=== PATIENT | female | born 1970 | race Caucasian/White ===

== ENCOUNTER 2025-01-07 22:13 | Emergency (ER) | payer OTHER, SELFPAY ==
[2025-01-07 22:14] VITALS: BP 160/93; PULSE 88; RESP 22; TEMP 37.2; O2SAT 95; BMI 46.8
--- NOTE | 2025-01-07 22:39 | CT_ITS ---
PROCEDURE: ABDOMEN/PELVIS W IV CONT ONLY 01/07/2025 REASON FOR EXAM: RLQ PAIN TECHNIQUE: Abdomen and pelvis CT with intravenous contrast. Coronal and Sagittal reconstruction series were provided. PATIENT PREPARATION: Per protocol ORAL CONTRAST TYPE: None. AMOUNT: mL CONTRAST: Omnipaque 350 VOLUME: 100 mL Not Provided Gauge IV One or more dose reduction techniques were used (e.g., Automated exposure control, adjustment of the mA and/or kV according to patient size, use of iterative reconstruction technique. COMPARISON: None FINDINGS: Lung bases: Unremarkable Liver: Hepatomegaly, craniocaudal length 22 cm. Hepatic steatosis. 20 mm low- attenuation lesion left hepatic lobe. 12 mm inferior right hepatic lobe hypervascular lesion. Additional 12 mm inferior right hepatic lobe low-attenuation lesion. Gallbladder: No ductal dilation. Gallbladder is unremarkable. Spleen: No splenomegaly. Pancreas: Normal size without evidence of mass surrounding inflammation or ductal dilation. Adrenals: Unremarkable Kidneys: Normal renal sizes. No hydronephrosis. Bladder: Urinary bladder is unremarkable Reproductive Organs: 4.1 cm left adnexal cyst. Bowel: Status post gastric sleeve resection. No bowel dilation. Colonic diverticulosis with wall thickening and surrounding soft tissue stranding involving the descending and proximal sigmoid colon, compatible with acute diverticulitis. No pneumoperitoneum or drainable fluid collection. Appendix is normal.. Lymph nodes: No suspicious adenopathy. Vasculature: The abdominal aorta and IVC are normal. Peritoneum / Retroperitoneum: No ascites or pneumoperitoneum. Bones: No suspicious osseous lesions. Soft tissues: Small fat containing umbilical hernia. CT/Abdomen/Pelvis W IV Cont ONLY IMPRESSION: 1. Findings compatible with acute sigmoid diverticulitis. No pneumoperitoneum or drainable fluid collection. 2. Hepatomegaly and steatosis with multiple low-attenuation and right inferior lobe hypervascular lesion. These may represent hemangiomas. Recommend further evaluation with MRI of the liver with and witho ut contrast. 4.1 cm left adnexal cysts. Recommend further evaluation with nonemergent pelvic ultrasound. Reading [facility]
[2025-01-07 22:52] LABS: Absolute Neutrophil Count 6.6 X10^3/uL (2.0-7.7); Basophil# 0.03 X10^3/uL; Basophil% 0.3 % (0-1); Eosinophil# 0.16 X10^3/uL; Eosinophils% 1.6 % (0-5); Hematocrit 37.1 % (37-47); Hemoglobin 12.3 g/dL (12.0-15.0); Lymphocyte % 21.6 % (19-41); Mean Corp Hgb Conc 33.2 g/dL (32-36); Mean Corpuscular Hgb 27.5 pg (27.0-32.0); Mean Corpuscular Volume 82.8 fL (81-99); Monocyte# 1.12 X10^3/uL; NRBC Flagged by Analyzer 0 % (0-5); Neutrophil # 6.64 X10^3/uL (2.7-7.7); Neutrophil % 65.2 % (47-70); Platelet Count 311 K/mm3 (150-450); RBC Distribution Width CV 14.6 % (11.6-14.6); RBC Distribution Width SD 43.8 fl (35.1-43.9); Red Blood Count 4.48 M/mm3 (4.2-5.4); White Blood Count 10.2 K/mm3 (4.4-11.0)
[2025-01-07] MEDS: Ketorolac 30 MG/ML Syringe IV (22:52)
[2025-01-07] MEDS: 0.9% Normal Saline (1000mL) 1,000 ML 999 ML IV (22:52)
[2025-01-07] MEDS: Ondansetron 4 MG/2 ML Vial IV (22:53)
[2025-01-07 23:24] LABS: AST(SGOT) 21 U/L (<=31); Alanine Aminotransfer ALT/SGPT 19 U/L (<=34); Albumin, Serum 3.8 g/dL (3.5-5.0); Alkaline Phosphatase 65 U/L (35-104); Anion Gap 11 (5-15); BUN 15 mg/dL (4-19); BUN/Creat Ratio 17.6 RATIO (10-20); Bilirubin, Direct 0.11 mg/dL (0.00-0.30); Calcium,Total 8.9 mg/dL (7.6-11.0); Carbon Dioxide 22.1 mmol/L (21.0-32.0); Chloride 103 mmol/L (98-108); Creatinine, Serum 0.83 mg/dL (0.70-1.20); EST Glomerular Filtration Rate 85 (>60); Estimated Creatinine Clearance 129.52 ml/min (50-250); Globulin 3.4 g/dL (2.2-4.2); Glucose 100 mg/dL (70-99); Lipase 18 U/L (13-75); Protein, Total 7.2 g/dL (5.9-8.4); Sodium Level 137 mmol/L (133-145)
[2025-01-07 23:43] LABS: Color, Urine Yellow (Yellow); Glucose, Dipstick Normal (Normal); Ketone-Dipstick Negative (Negative); Leukocyte Esterase-Dipstick 500 /ul (Negative); Nitrite-Dipstick Negative (Negative); Occult Blood-Urine 25 /ul (Negative); Protein-Dipstick 15 mg/dl (Negative); Specific Gravity, Urine 1.015 (1.002-1.030); Urine Bilirubin Dipstick Negative (Negative); Urine Clarity Clear (Clear); Urine Urobilinogen Normal (Normal)
[2025-01-08 00:08] VITALS: PULSE 65; RESP 15; TEMP 36.4; O2SAT 98
--- NOTE | 2025-01-08 00:11 | EX.ED.DYSGE1 ---
HPI History of Present Illness Chief Complaint: Abd Pain Informant: patient Narrative Narrative: Patient is a 54-year-old female who reports no significant past medical history. She states that over the last 2 days she has had midepigastric abdominal pain that has been waxing and waning in nature. She states that she has been nauseous with this but denies any vomiting. She denies any diarrhea or constipation. She states has been no dysuria. She reports that today the pain increased in severity and she also felt sick with subjective fevers and chills. She denies any known sick contacts but has concern for developing infection and therefore comes in for evaluation [facility] Medical History (Updated 01/08/25 @ 02:[address] James Talbert, DO) Hiatal hernia Home Medications ?Medication ?Instructions ?Recorded ?Last Taken ?Type atorvastatin 20 mg tablet 20 mg PO DAILY 12/06/22 Unknown History phenazopyridine 100 mg tablet 100 mg PO TID PRN pain 6 doses #6 12/06/22 Unknown Rx (Pyridium) tabs sertraline 50 mg tablet 50 mg PO DAILY 12/06/22 Unknown History azithromycin 250 mg tablet See Rx Instructions PO .COMPLEX #6 12/06/23 Unknown Rx (Zithromax Z-Hamzah) tabs dextromethorphan-guaifenesin 10 10 ml PO Q4H PRN cough #500 mL 12/06/23 Unknown Rx mg-100 mg/5 mL oral liquid fluconazole 150 mg tablet 150 mg PO Q3D 2 doses #2 tabs 12/06/23 Unknown Rx methylprednisolone 4 mg tablets in See Rx Instructions PO PER PKG DIR 12/06/23 Unknown Rx a dose pack #21 tabs amoxicillin 875 mg-potassium 1 tab PO BID 10 days #20 tabs 01/08/25 Unknown Rx clavulanate 125 mg tablet ondansetron 4 mg disintegrating 4 mg PO TID PRN nausea and 01/08/25 Unknown Rx tablet vomiting #21 tabs Allergy/AdvReac Type Severity Reaction Status Date / Time No Known Allergies Allergy Verified 01/07/25 22:14 Family History (Updated 12/06/22 @ 06:44 by Katey Hussein) Father Heart disease Mother Heart disease Surgical History H/O gastric bypass Hx of hysterectomy, total Social History (Updated 12/06/22 @ 06:44 by Katey Hussein) Smoking Status: Never smoker alcohol intake: never ROS ROS ED Constitutional Constitutional ED: Reports chills, fever(s) and subjective ENT ENT ED: Denies sore throat Cardiovascular Cardiovascular: Denies chest pain Respiratory/Chest Respiratory/Chest: Denies cough or dyspnea Gastrointestinal Gastrointestinal: Reports abdominal pain and nausea; Denies constipation, diarrhea, melena or vomiting Genitourinary Genitourinary ED: Denies dysuria or hematuria Musculoskeletal Musculoskeletal: Reports myalgias Integumentary Denies rash Neurologic Neurologic: Denies headache(s) Hematologic/Lymphatic Hematologic/Lymphatic: Denies easy bleeding or easy bruising EXAM Physical Exam Const Vital Signs: 01/07/25 22:14 01/08/25 00:08 Temperature 98.9 F 97.5 F L Temperature Source Oral Pulse Rate 88 65 Respiratory Rate 22 H 15 Blood Pressure 160/93 H Blood Pressure Mean 115 Pulse Ox 95 98 Oxygen Delivery Method Room Air Positive well nourished, well developed and obese General Appearance ED: well developed; Negative for pallor Nutritional Appearance: obese HEENT HEENT Narrative: No tongue or lip swelling no oral lesions no airway edema or compromise No signs of infection noted in the posterior pharynx Eyes PERRL and EOMs intact bilaterally General Eye ED: Negative for scleral icterus Neck supple Resp normal respiratory effort and clear to auscultation bilaterally Cardio regular rate and regular rhythm Rate: other Other Details: Heart is regular rate and rhythm without murmurs rubs or gallops Radial and carotid pulses are equal and symmetric GI non-distended and no masses GI Narrative: Abdomen is soft and nondistended with normal active bowel sounds. There is pain on palpation in the midepigastric and right lower quadrant. However negative heel strike psoas and obturator sign. No pulsatile mass or fluid wave Auscultation: normoactive bowel sounds Palpation: soft Back/Spine no CVA tenderness Extremity normal to inspection Neuro oriented x3, CN's II-XII intact bilaterally and no sensory deficits noted Sensorium / Orientation: alert Motor Exam: strength 5/5 throughout Psych mental status grossly normal Skin no rashes or lesions noted and no wounds General Skin Exam: Negative for jaundice or pallor MDM MDM MDM Narrative Medical decision making narrative: Patient arrived to the ER hypertensive otherwise with stable vitals. With worsening abdominal pain and pain that is reproducible in the right lower quadrant there is concern for acute appendicitis versus biliary colic/acute cholecystitis versus pancreatitis. Patient also could have potentially have a viral infection such as norovirus versus rotavirus or atypical presentation for UTI. Secondary to his basic labs were obtained with a CT scan with IV contrast. Labs revealed no clinically significant findings. Patient's urine did show +3 bacteria but there is contamination with 25-50 epithelial cells and as the patient has no urinary symptoms I do not feel there is need for urine culture and I do not believe this is truly an infection. Her CT scan however did show changes consistent with acute diverticulitis. This could be the cause of her recurrent abdominal pain. There is no abscess or perforation or obstruction and therefore this is an uncomplicated diverticular infection. Therefore patient can be placed on antibiotics and is otherwise safe for discharge History & Record Review Discussion w/independent historian: Patient Lab Data Attestation: I reviewed the patient's lab results. Labs: Laboratory Results - last 24 hr 01/07/25 01/07/25 22:43 23:30 WBC 10.2 RBC 4.48 Hgb 12.3 Hct 37.1 MCV 82.8 MCH 27.5 MCHC 33.2 RDW Std Deviation 43.8 RDW Coeff of Jose 14.6 Plt Count 311 MPV 10.0 Immature Gran % (Auto) 0.300 Neut % (Auto) 65.2 Lymph % (Auto) 21.6 [place] % (Auto) 11.0 H Eos % (Auto) 1.6 Baso % (Auto) 0.3 Absolute Neuts (auto) 6.6 Absolute Lymphs (auto) 2.20 Nucleated RBC % 0 Sodium 137 Potassium 4.0 Chloride 103 Carbon Dioxide 22.1 Anion Gap 11 BUN 15 Creatinine 0.83 Estim Creat Clear Calc 129.52 Est GFR (MDRD) Non-Af 85 BUN/Creatinine Ratio 17.6 Glucose 100 H Calcium 8.9 Total Bilirubin 0.30 Direct Bilirubin 0.11 AST 21 ALT 19 Alkaline Phosphatase 65 Total Protein 7.2 Albumin 3.8 Globulin 3.4 Lipase 18 Urine Color Yellow Urine Clarity Clear Urine pH 7.0 Ur Specific [place] 1.015 Urine Protein 15 H Urine Glucose (UA) Normal Urine Ketones Negative Urine Occult Blood 25 H Urine Nitrite Negative Urine Bilirubin Negative Urine Urobilinogen Normal Ur Leukocyte Esterase 500 H Urine RBC 0-5 SEEN Urine WBC >100 SEEN Ur Squamous Epith Cells 25-50 SEEN Urine Bacteria 3+ Urine Mucus 1+ Radiography Diagnostic Testing: Clinical Impression(s) from Imaging Studies Abdomen/Pelvis CT 01/07/25 22:39 IMPRESSION: 1. Findings compatible with acute sigmoid diverticulitis. No pneumoperitoneum or drainable fluid collection. 2. Hepatomegaly and steatosis with multiple low-attenuation and right inferior lobe hypervascular lesion. These may represent hemangiomas. Recommend further evaluation with MRI of the liver with and without contrast. 4.1 cm left adnexal cysts. Recommend further evaluation with nonemergent pelvic ultrasound. Reading Location: [facility] Discharge Plan Triage Chief Complaint: Abd Pain ED Provider: James Talbert Dx/Rx/DC Orders Clinical Impression: Diverticulitis of sigmoid colon, Obesities, morbid, Hypertension Instructions: ED Diverticulitis Prescriptions: New ondansetron 4 mg tablet,disintegrating 4 mg PO TID PRN (Reason: nausea and vomiting) Qty: 21 0RF amoxicillin-pot clavulanate 875-125 mg tablet 1 tab PO BID 10 Days Qty: 20 0RF No Action sertraline 50 mg tablet 50 mg PO DAILY atorvastatin 20 mg tablet 20 mg PO DAILY phenazopyridine [Pyridium] 100 mg tablet 100 mg PO TID PRN (Reason: pain) Qty: 6 0RF azithromycin [Zithromax Z-Hamzah] 250 mg tablet See Rx Instructions PO .COMPLEX Qty: 6 0RF Rx Instructions: take 500 mg today (day 1), then 250 mg for 4 days (days 2-5) PO methylprednisolone 4 mg tablets,dose pack See Rx Instructions PO PER PKG DIR Qty: 21 0RF Rx Instructions: PO PER PKG DIR dextromethorphan-guaifenesin 10-100 mg/5 mL liquid 10 ml PO Q4H PRN (Reason: cough) Qty: 500 0RF fluconazole 150 mg tablet 150 mg PO Q3D Qty: 2 0RF Rx Instructions: may repeat once after 3 days if any ongoing symptoms. Primary Care Provider: Radha Blackman NP Referrals: Radha Blackman NP, [employer] [facility] [Primary Care Provider] - Activity Restrictions/Additional Instructions: Your CT scan showed no signs of appendicitis but did show inflammation of your sigmoid colon consistent with diverticulitis. Take the antibiotic as directed to help resolve the infection which will resolve your pain. This will typically take 2 to 3 days for improvement. Continue with Tylenol and/or Motrin for pain control and use the Zofran as needed for relief of nausea and vomiting. If you develop a fever or have increasing pain or any further concerns please return for repeat evaluation. Print Language: Malay Disposition Disposition: Home, Self Care Discharge Date/Time: 01/08/25 00:20
[2025-01-08] MEDS: Amox/Clavulanate 875 MG Tablet PO (00:19)
[2025-01-08 00:22] LABS: Red Blood Cells-Urine 0-5 SEEN /hpf (0-5); Squamous Epithelial Cells - UA 25-50 SEEN /hpf (5-10); White Blood Cells >100 SEEN /hpf (0-5)
[2025-01-08 00:23] LABS: Bacteria 3+ /hpf (None Seen); Mucous, Urine 1+ /hpf (<or=2+)
== END 2025-01-08 00:20 | disposition home or self-care (01) ==
PROVIDERS: Emergency Provider Emergency Medicine; PCP Nurse Practitioner Family; Visit Provider Emergency Medicine
DX: R10.13 Epigastric pain (principal); E66.01 Morbid (severe) obesity due to excess calories; K57.32 Diverticulitis of large intestine without perforation or abscess without bleeding; I10 Essential (primary) hypertension; Z90.710 Acquired absence of both cervix and uterus
CPT/HCPCS: 74177; 80048; 80076; 81001; 83690; 85025; 96361; 96374; 96375; 99283; Q9967; A4216; J2405

== ENCOUNTER → 2025-03-02 | Outpatient (CLI) | payer OTHER, SELFPAY | END | disposition home or self-care (01) | LOC: PSN 06:43 | PROVIDERS: PCP Nurse Practitioner Family; Referring Provider Nurse Practitioner Family; Visit Provider Nurse Practitioner Family | DX: R00.2 Palpitations (principal); R06.02 Shortness of breath; Z82.49 Family history of ischemic heart disease and other diseases of the circulatory system | CPT/HCPCS: 93225; 93226 ==

== ENCOUNTER → 2025-03-31 | Outpatient (CLI) | payer SELFPAY, OTHER ==
--- NOTE | 2025-03-31 06:06 | ECHOD_ITS ---
Reason For Study Reason For Study: PALPITATIONS Procedure This was a 2D Doppler, Color Flow transthoracic echocardiogram. Exam performed in department. Left Ventricle Normal LV size. The left ventricular ejection fraction is 55 %. No regional wall motion abnormalities noted. Right Ventricle Normal RV size. Normal systolic function. Atria Normal left atrium. Normal right atrium. Mitral Valve Normal mitral valve. Tricuspid Valve Normal tricuspid valve. Aortic Valve Trisinus/trileaflet aortic valve. Pulmonic Valve Normal pulmonic valve. Great Vessels Normal aortic root. The pulmonary artery is normal size. Pericardium/Pleural No pericardial effusion. MMode/2D Measurements & Calculations LVIDd: 4.6 cm IVSd: 0.99 cm LVOT diam: 2.2 cm LVIDs: 2.8 cm LVPWd: 1.0 cm LVOT area: 3.9 cm2 RVDd: 3.3 cm FS: 40.0 % asc Aorta Diam: 3.5 cm LAV(MOD-bp): 43.9 ml LVAd ap4: 25.4 cm2 LAV(MOD-bp) Indexed: 17.1 ml/m2 LVLd ap4: 8.1 cm LAV(MOD-sp2): 63.5 ml EDV(MOD-sp4): 67.9 ml LAV(MOD-sp4): 26.3 ml EDV(sp4-el): 67.8 ml LVAs ap4: 12.9 cm2 LVLs ap4: 6.5 cm ESV(MOD-sp4): 21.7 ml ESV(sp4-el): 21.7 ml EF(MOD-sp4): 68.1 % EF(sp4-el): 68.0 % LVAd ap2: 25.4 cm2 SV(MOD-sp4): 46.2 ml SV(MOD-sp2): 44.7 ml LVLd ap2: 8.0 cm SI(MOD-sp4): 17.9 ml/m2 SI(MOD-sp2): 17.4 ml/m2 EDV(MOD-sp2): 65.8 ml EDV(sp2-el): 68.7 ml LVAs ap2: 13.1 cm2 LVLs ap2: 6.7 cm ESV(MOD-sp2): 21.1 ml ESV(sp2-el): 21.6 ml EF(MOD-sp2): 68.0 % SV(sp4-el): 46.1 ml Ao sinus diam: 3.[address] Junction: 3.0 cm LA dimension(2D): 3.9 cm LA A4 area: 12.6 cm2 RA A4 area: 5.8 cm2 TAPSE: 2.3 cm Time Measurements MV dec time: 0.17 sec Doppler Measurements & Calculations MV E max omari: 69.7 cm/sec Lat Peak E' Omari: 10.7 cm/sec Med Peak E' Omari: 11.2 cm/sec MV A max omari: 71.3 cm/sec E/E' lat: 6.5 E/E' med: 6.2 MV E/A: 0.98 MV dec slope: 401.1 cm/sec2 Ao V2 max: 119.5 cm/sec LV V1 max: 108.4 cm/sec Ao max P.7 mmHg LV V1 max P.7 mmHg Ao V2 mean: 86.7 cm/sec LV V1 mean P.4 mmHg Ao mean P.3 mmHg LV V1 mean: 90.7 cm/sec Ao V2 VTI: 25.7 cm LV V1 VTI: 26.1 cm AV (velocity ratio): 1.0 MARY(I,D): 4.0 cm2 MARY(V,D): 3.6 cm2 SV(LVOT): 102.4 ml PA V2 max: 89.1 cm/sec ECHO/Echo Complete Interpretation Summary The left ventricular ejection fraction is 55 %. Normal LV size. No regional wall motion abnormalities noted. Structurally normal valves. Ordering Physician: Radha Blackman Referring Physician: Radha Blackman Performed By: Concepcion Abreu RDCS
--- OUTSIDE RECORDS SUMMARY | 2025-03-31 06:09 | XMS RPT_ITS | CCD ---
Author Organization [facility] Care Team Providers Care Se[employer] Name Role Phone Dr. James Talbert DO Emergency Provider [phone] Yehuda DIRECTOR DATA ARCHITECTURE-C, Radha Shelly Primary Care Provider Dr. James Talbert DO Attending Provider [phone] Kappbettye DIRECTOR DATA ARCHITECTURE-C, Radha Shelly Attending Provider [phone] Kappbettye DIRECTOR DATA ARCHITECTURE-C, Radha Shelly Referring Provider Kappbettye DIRECTOR DATA ARCHITECTURE, Radharamandeep Alexandere Attending Unavailabl e Kapper DIRECTOR DATA ARCHITECTURE, Radha Shelly Referring Unavailabl e Kapper DIRECTOR DATA ARCHITECTURE, Radha Shelly Primary Care Unavailabl e James Talbert Attending Unavailable Kapper DIRECTOR DATA ARCHITECTURE, Radha Shelly Primary Care Unavailabl e Kapper DIRECTOR DATA ARCHITECTURE, Radha Shelly Referring Unavailabl e Kapper DIRECTOR DATA ARCHITECTURE, Radha Shelly Primary Care Unavailabl e Kapper DIRECTOR DATA ARCHITECTURE, Radha Shelly Attending Unavailabl e Kapper DIRECTOR DATA ARCHITECTURE, Radha Shelly Referring Unavailabl e Kapper DIRECTOR DATA ARCHITECTURE, Radha Shelly Primary Care Unavailabl e Kendall Barber Attending Unavailabl e Medications Current Medications Medication Drug Class(es) Dates Sig (Normalized) Sig (Original) amoxicillin 875 mg / clavulanate 125 mg oral tablet (2 sources) Penicillin-class Antibacterial Start: 5 Amoxicillin-Pot Clavulanate 875-125 mg tablet Active 1 {tbl} PO TWICE A DAY 20 07January 08, 2025 12:00am atorvastatin 20 mg oral tablet (2 sources) HMG-CoA Reductase Inhibitor Start: 3 take 1 tablet by mouth once daily Atorvastatin 20 mg tablet Active 20 mg PO DAILY December 06, 2022 1:00am azithromycin 250 mg oral tablet (2 sources) Macrolide Antimicrobial Start: 4 take 2-5 tablets by mouth once daily Azithromycin (Zithromax Z-Hamzah) 250 mg tablet Active 0 PO .COMPLEX December 06, 2023 1:00am take 500 mg today (day 1), then 250 mg for 4 days (days 2-5) PO dextromethorphan hydrobromide 2 mg/ml / guaiFENesin 20 mg/ml oral solution (2 sources) Uncompetitive Q-njukwm-K-asparta te Receptor Antagonist, Sigma-1 Agonist Start: 4 take 1 mL by mouth every four hours as needed for cough Dextromethorphan-Guai fenesin 10-100 mg/5 mL liquid Active 10 mL PO Q4H as needed for cough 500 December 06, 2023 1:00am fluconazole 150 mg oral tablet (2 sources) Azole Antifungal Start: 4 Fluconazole 150 mg tablet Active 150 mg PO Every 3 Days 2 December 06, 2023 1:00am may repeat once after 3 days if any ongoing symptoms. methylPREDNISolone 4 mg oral tablet (2 sources) Corticosteroid Start: 4 Methylprednisolone 4 mg tablets,dose pack Active 0 PO per package directions December 06, 2023 1:00am PO PER PKG DIR ondansetron 4 mg disintegrating oral tablet (2 sources) Serotonin-3 Receptor Antagonist Start: 5 take 1 tablet by mouth three times daily as needed for nausea and vomiting Ondansetron 4 mg tablet,disintegrating Active 4 mg PO THREE TIMES A DAY as needed for nausea and vomiting January 08, 2025 12:12am phenazopyridine hydrochloride 100 mg oral tablet (2 sources) Start: 3 take 1 tablet by mouth three times daily as needed for pain Phenazopyridine (Pyridium) 100 mg tablet Active 100 mg PO THREE TIMES A DAY as needed for pain December 06, 2022 1:00am sertraline 50 mg oral tablet (2 sources) Serotonin Reuptake Inhibitor Start: 3 take 1 tablet by mouth once daily Sertraline 50 mg tablet Active 50 mg PO DAILY December 06, 2022 1:00am Completed/Discontinued Medications Medication Drug Class(es) Dates Sig (Normalized) Sig (Original) nitrofurantoin, macrocrystals 25 mg / nitrofurantoin, monohydrate 75 mg oral capsule (2 sources) Nitrofuran Antibacterial Start: 12-06-2022 End: 12-13-2022 take 1 capsule by mouth every twelve hours at mealtime Nitrofurantoin Monohyd/M-Cryst (Macrobid) 100 mg capsule Discontinued 100 mg PO Q12H 14 7 December 06, 2022 1:00am December 12, 2022 12:00am December 13, 2022 12:04am must administer with a meal/food Problems Problem Classification Problem Date Documented Date Episodic/Chronic Abdominal pain (1 source) Epigastric pain; Translations: [Epigastric pain] Onset: 03-30-2025 Episodic Acute bronchitis (2 sources) Acute bronchitis; Translations: [Acute bronchitis, unspecified] 12-06-2023 Episodic Cardiac dysrhythmias (2 sources) Palpitations; Translations: [Palpitations] Onset: 03-30-2025 Episodic Disorders of lipid metabolism (2 sources) Dyslipidemia; Translations: [Hyperlipidemia, unspecified] 07-12-2015 Chronic Diverticulosis and diverticulitis (2 sources) Diverticulitis of sigmoid colon; Translations: [Diverticulitis of large intestine without perforation or abscess without bleeding] 01-08-2025 Chronic Essential hypertension (1 source) Hypertensive disorder; Translations: [Essential (primary) hypertension] 01-16-2025 Chronic Fever of unknown origin (2 sources) Fever; Translations: [Fever, unspecified] 12-06-2022 Episodic Genitourinary symptoms and ill-defined conditions (4 sources) Blood in urine; Translations: [Hematuria, unspecified] 12-06-2022 Episodic Headache; including migraine (2 sources) Headache; Translations: [Severe headache] 12-06-2022 Episodic Malaise and fatigue (1 source) Other fatigue; Translations: [Other fatigue] Onset: 03-30-2025 Episodic Nausea and vomiting (2 sources) Nausea; Translations: [Nausea] 12-06-2022 Episodic Nonspecific chest pain (2 sources) Chest pain; Translations: [Chest pain, unspecified] 07-12-2015 Episodic Other lower respiratory disease (1 source) Shortness of breath; Translations: [Shortness of breath] Onset: 03-30-2025 Episodic Other nutritional; endocrine; and metabolic disorders (2 sources) Morbid obesity; Translations: [Morbid (severe) obesity due to excess calories] 07-12-2015 Chronic Residual codes; unclassified (1 source) Family history of ischemic heart disease and other diseases of the circulatory system; Translations: [Family history of ischemic heart disease and other diseases of the circulatory system] Onset: 03-30-2025 Episodic Spondylosis; intervertebral disc disorders; other back problems (2 sources) Low back pain; Translations: [Low back pain] 12-06-2022 Episodic Urinary tract infections (2 sources) Acute urinary tract infection; Translations: [Urinary tract infection, site not specified] 12-06-2022 Episodic Results Test Name Value Interpretation Reference Range Facility Emergency Department Summary on 01-08-2025 Emergency Department Summary [facility] Medical Records Department [address] [place] [address] Emergency Department Summary 01/08/25 MR#: [id number] Acct: [id number] Name: ARAVIND VERGARA Rep #: [id number] : 1970 54 From: James Talbert DO PCP: RON JarquinC Status:DEP ER Location: ED HPI History of Present Illness Chief Complaint: Abd Pain Informant: patient Narrative Narrative: Patient is a 54-year-old female who reports no significant past medical history. She states that over the last 2 days she has had midepigastric abdominal pain that has been waxing and waning in nature. She states that she has been nauseous with this but denies any vomiting. She denies any diarrhea or constipation. She states has been no dysuria. She reports that today the pain increased in severity and she also felt sick with subjective fevers and chills. She denies any known sick contacts but has concern for developing infection and therefore comes in for evaluation [facility] Medical History (Updated 01/08/25 @ 02:[address] James Talbert, DO) Hiatal hernia Home Medications ???Medication ???Instructions ???Recorded ???Last Taken ???Type atorvastatin 20 mg tablet 20 mg PO DAILY 12/06/22 Unknown Hi story phenazopyridine 100 mg tablet 100 mg PO TID PRN pain 6 doses #6 12/06/22 Unknown Rx (Pyridium) tabs sertraline 50 mg tablet 50 mg PO DAILY 12/06/22 Unknown Hi story azithromycin 250 mg tablet See Rx Instructions PO .COMPLEX #6 12/06/23 Unknown Rx (Zithromax Z-Hamzah) tabs dextromethorphan-gua ifenesin 10 10 ml PO Q4H PRN cough #500 mL 04/23 Unknown Rx mg-100 mg/5 mL oral liquid fluconazole 150 mg tablet 150 mg PO Q3D 2 doses #2 tabs 04/23 Unknown Rx methylprednisolone 4 mg tablets in See Rx Instructions PO PER PKG D IR 12/06/23 Unknown Rx a dose pack #21 tabs amoxicillin 875 mg-potassium 1 tab PO BID 10 days #20 tabs 12/30 Unknown Rx clavulanate 125 mg tablet ondansetron 4 mg disintegrating 4 mg PO TID PRN nausea and 5 Unknown Rx tablet vomiting #21 tabs Allergy/AdvReac Type Severity Reaction Status Date / Time No Known Allergies Allergy Verified 01/07/25 22:14 Family History (Updated 12/06/22 @ 06:44 by Katey Hussein) Father Heart disease Mother Heart disease Surgical History H/O gastric bypass Hx of hysterectomy, total Social History (Updated 12/06/22 @ 06:44 by Katey Hussein) Smoking Status: Never smoker alcohol intake: never ROS ROS ED Constitutional Constitutional ED: Reports chills, fever(s) and subjective ENT ENT ED: Denies sore throat Cardiovascular Cardiovascular: Denies chest pain Respiratory/Chest Respiratory/Chest: Denies cough or dyspnea Gastrointestinal Gastrointestinal: Reports abdominal pain and nausea; Denies constipation, diarrhea, melena or vomiting Genitourinary Genitourinary ED: Denies dysuria or hematuria Musculoskeletal Musculoskeletal: Reports myalgias Integumentary Denies rash Neurologic Neurologic: Denies headache(s) Hematologic/Lymphati c Hematologic/Lymphati c: Denies easy bleeding or easy bruising EXAM Physical Exam Const Vital Signs: 01/07/25 22:14 01/08/25 00:08 Temperature 98.9 F 97.5 F L Temperature Source Oral Pulse Rate 88 65 Respiratory Rate 22 H 15 Blood Pressure 160/93 H Blood Pressure Mean 115 Pulse Ox 95 98 Oxygen Delivery Method Room Air Positive well nourished, well developed and obese General Appearance ED: well developed; Negative for pallor Nutritional Appearance: obese HEENT HEENT Narrative: No tongue or lip swelling no oral lesions no airway edema or compromise No signs of infection noted in the posterior pharynx Eyes PERRL and EOMs intact bilaterally General Eye ED: Negative for scleral icterus Neck supple Resp normal respiratory effort and clear to auscultation bilaterally Cardio regular rate and regular rhythm Rate: other Other Details: Heart is regular rate and rhythm without murmurs rubs or gallops Radial and carotid pulses are equal and symmetric GI non-distended and no masses GI Narrative: Abdomen is soft and nondistended with normal active bowel sounds. There is pain on palpation in the midepigastric and right lower quadrant. However negative heel strike psoas and obturator sign. No pulsatile mass or fluid wave Auscultation: normoactive bowel sounds Palpation: soft Back/Spine no CVA tenderness Extremity normal to inspection Neuro oriented x3, CN's II-XII intact bilaterally and no sensory deficits noted Sensorium / Orientation: alert Motor Exam: strength 5/5 throughout Psych mental status grossly normal Skin no rashes or lesions noted and no wounds General Skin Exam: Negative for jaundice or (more content not included)... Normal [facility] Urinalysis, Completeon 01-08 BACTERIA 3+ /hpf Normal None Seen [facility] Comment on above: Order Comment: ARIK CTOR TO SPECIFY Performed By: #### L 400.0001 #### [facility] [address] [place], [place], [id number] Mucus Ql (Urine sed) 1+ /hpf Normal [facility] Comment on above: Order Comment: ARIK CTOR TO SPECIFY Performed By: #### L 400.0001 #### [facility] [address] [place], [place], [id number] EPI,SQUAMOUS 25-50 SEEN Normal 5-10 [facility] Comment on above: Order Comment: ARIK CTOR TO SPECIFY Performed By: #### L 400.0001 #### [facility] [address] [place], [place], [id number] RBC 0-5 SEEN Normal 0-5 [facility] Comment on above: Order Comment: ARIK CTOR TO SPECIFY Performed By: #### L 400.0001 #### [facility] [address] [place], [place], [address] WBC >100 SEEN Normal 0-5 [facility] Comment on above: Order Comment: COLLE CTOR TO SPECIFY Performed By: #### L 400.0001 #### [facility] [address] [place], [place], [address] Abdomen/Pelvis W IV Cont ONL Yon 01-07-2025 Abdomen/Pelvis W IV Cont ONLY [facility] Imaging Services [address] [place] [address] Abdomen/Pelvis W IV Cont ONLY MR#: [id number] Acct: [id number] Name: ARAVIND VERGARA Rep #: [id number] : 1970 F 54 From: Juan canela MD PCP: Radha Blackman, DIRECTOR DATA ARCHITECTURE-C Status: REG ER Study: Abdomen/Pelvis W IV Cont ONLY Date of Exam: Exam# [id number] Ordering Dr: James Talbert DO PROCEDURE: ABDOMEN/PELVIS W IV CONT ONLY 01/07/2025 REASON FOR EXAM: RLQ PAIN TECHNIQUE: Abdomen and pelvis CT with intravenous contrast. Coronal and Sagittal reconstruction series were provided. PATIENT PREPARATION: Per protocol ORAL CONTRAST TYPE: None. AMOUNT: mL CONTRAST: Omnipaque 350 VOLUME: 100 mL Not Provided Gauge IV One or more dose reduction techniques were used (e.g., Automated exposure control, adjustment of the mA and/or kV according to patient size, use of iterative reconstruction technique. COMPARISON: None FINDINGS: Lung bases: Unremarkable Liver: Hepatomegaly, craniocaudal length 22 cm. Hepatic steatosis. 20 mm low-attenuation lesion left hepatic lobe. 12 mm inferior right hepatic lobe hypervascular lesion. Additional 12 mm inferior right hepatic lobe low- attenuation lesion. Gallbladder: No ductal dilation. Gallbladder is unremarkable. Spleen: No splenomegaly. Pancreas: Normal size without evidence of mass surrounding inflammation or ductal dilation. Adrenals: Unremarkable Kidneys: Normal renal sizes. No hydronephrosis. Bladder: Urinary bladder is unremarkable Reproductive Organs: 4.1 cm left adnexal cyst. Bowel: Status post gastric sleeve resection. No bowel dilation. Colonic diverticulosis with wall thickening and surrounding soft tissue stranding involving the descending and proximal sigmoid colon, compatible with acute diverticulitis. No pneumoperitoneum or drainable fluid collection. Appendix is normal.. Lymph nodes: No suspicious adenopathy. Vasculature: The abdominal aorta and IVC are normal. Peritoneum / Retroperitoneum: No ascites or pneumoperitoneum. Bones: No suspicious osseous lesions. Soft tissues: Small fat containing umbilical hernia. CT/Abdomen/Pelvis W IV Cont ONLY IMPRESSION: 1. Findings compatible with acute sigmoid diverticulitis. No pneumoperitoneum or drainable fluid collection. 2. Hepatomegaly and steatosis with multiple low-attenuation and right inferior lobe hypervascular lesion. These may represent hemangiomas. Recommend further evaluation with MRI of the liver with and without contrast. 4.1 cm left adnexal cysts. Recommend further evaluation with nonemergent pelvic ultrasound. Reading Location: [facility] CC: DELFINO Blackman; James Talbert DO Packing Shed Supervisor: Signed Normal [facility] Absolute lymphocyte countOrd ered By: James Talbert on 01-07-2025 Lymphocytes Auto (Unsp spec) [#/Vol] 2.20 10*3/uL 0.83-4.51 [facility] Absolute neutrophil countOrd ered By: James Talbert on 01-07-2025 Neutrophils (Bld) [#/Vol] 6.6 10*3/uL 2.0-7.7 [facility] Anion gap in Serum or Plasma Ordered By: James Talbert on 01-07-2025 Anion gap [Moles/Vol] 11 mmol/L 5-15 [facility] Automated lymphocyte count a s percentage of total leukocytesOrdered By: James Talbert on 01-07-2025 Lymphocytes/100 WBC Auto (Unsp spec) 21.6 % 19-41 [facility] BUN/creatinine ratioOrdered By: James Talbert on 01-07-2025 Urea nitrogen/Creatinine [Mass ratio] 17.6 mg/mg 10- [facility] Basic Metabolic Profile (BMP )on 01-07-2025 BUN/CRE 17.6 RATIO Normal - [facility] Comment on above: Performed By: #### L 500.3400, L500.2500, L100.0100, L501.2450 #### [facility] [address] [place], [address] Calcium [Mass/Vol] 8.9 mg/dL Normal 7.6-11.0 [facility] Comment on above: Performed By: #### L 500.3400, L500.2500, L100.0100, L501.2450 #### [facility] [address] [place], [address] Chloride [Moles/Vol] 103 mmol/L Normal 98-108 [facility] Comment on above: Performed By: #### L 500.3400, L500.2500, L100.0100, L501.2450 #### [facility] [address] [place], [address] CO2 [Moles/Vol] 22.1 mmol/L Normal 21.0-32.0 [facility] Comment on above: Performed By: #### L 500.3400, L500.2500, L100.0100, L501.2450 #### [facility] [address] [place], [address] Creatinine [Mass/Vol] 0.83 mg/dL Normal 0.70-1.20 [facility] Comment on above: Performed By: #### L 500.3400, L500.2500, L100.0100, L501.2450 #### [facility] [address] [place], [address] ECRCL 129.52 ml/min Normal 50-250 [facility] Comment on above: Performed By: #### L 500.3400, L500.2500, L100.0100, L501.2450 #### [facility] [address] [place], [address] GAP 11 Normal 5-15 [facility] Comment on above: Performed By: #### L 500.3400, L500.2500, L100.0100, L501.2450 #### [facility] [address] [place], [address] GFR/1.73 sq M.predicted among non-blacks MDRD (S/P/Bld) [Vol rate/Area] 85 mL/min/{1.73_m2} Normal >60 [facility] Comment on above: Result Comment: mL/m in/1.73m2 CKD-EPI Creatinine Equation (2020) Performed By: #### L 500.3400, L500.2500, L100.0100, L501.2450 #### [facility] [address] [place], [address] Glucose [Mass/Vol] 100 mg/dL High 70-99 [facility] Comment on above: Performed By: #### L 500.3400, L500.2500, L100.0100, L501.2450 #### [facility] [address] [place], [address] Potassium [Moles/Vol] 4.0 mmol/L Normal 3.3-5.1 [facility] Comment on above: Performed By: #### L 500.3400, L500.2500, L100.0100, L501.2450 #### [facility] [address] [place], [address] Sodium [Moles/Vol] 137 mmol/L Normal 133-145 [facility] Comment on above: Performed By: #### L 500.3400, L500.2500, L100.0100, L501.2450 #### [facility] [address] [place], [address] Urea nitrogen [Mass/Vol] 15 mg/dL Normal 4-19 [facility] Comment on above: Performed By: #### L 500.3400, L500.2500, L100.0100, L501.2450 #### [facility] [address] [place], [address] Basophil percentageOrdered B y: James Talbert on 01-07-2025 Basophils/100 WBC (Bld) 0.3 % 0-1 [facility] Bilirubin Test strip Ql (U)O rdered By: James Talbert on 01-07-2025 Bilirubin Ql (U) Negative Negative [facility] Bilirubin directOrdered By: James Talbert on 01-07-2025 Bilirubin.direct [Mass/Vol] 0.11 mg/dL 0.00-0.30 [facility] Bilirubin, totalOrdered By: James Talbert on 01-07-2025 Bilirubin [Mass/Vol] 0.30 mg/dL 0.00-1.30 [facility] CBC W/Diff, Automatedon Absolute Lymph 2.20 X10 3/uL Normal 0.83-4.51 [facility] Comment on above: Performed By: #### L 500.3400, L500.2500, L100.0100, L501.2450 #### [facility] [address] [place], [address] Absolute Neut 6.6 X10 3/uL Normal 2.0-7.7 [facility] Comment on above: Performed By: #### L 500.3400, L500.2500, L100.0100, L501.2450 #### [facility] [address] [place], [address] Basophils/100 WBC (Bld) 0.3 % Normal 0-1 [facility] Comment on above: Performed By: #### L 500.3400, L500.2500, L100.0100, L501.2450 #### [facility] [address] [place], [address] Eosinophils/100 WBC (Bld) 1.6 % Normal 0-5 [facility] Comment on above: Performed By: #### L 500.3400, L500.2500, L100.0100, L501.2450 #### [facility] [address] [place], [address] Erythrocyte distribution width (RBC) [Ratio] 14.6 % Normal 11.6-14.6 [facility] Comment on above: Performed By: #### L 500.3400, L500.2500, L100.0100, L501.2450 #### [facility] [address] [place], [address] Hematocrit (Bld) [Volume fraction] 37.1 % Normal 37-47 [facility] Comment on above: Performed By: #### L 500.3400, L500.2500, L100.0100, L501.2450 #### [facility] [address] [place], [address] Hemoglobin (Bld) [Mass/Vol] 12.3 g/dL Normal 12.0-15.0 [facility] Comment on above: Performed By: #### L 500.3400, L500.2500, L100.0100, L501.2450 #### [facility] [address] [place], [address] IG% 0.300 Normal 0.0-0.9 [facility] Comment on above: Result Comment: IG% - Immature Granulocytes (promyelocytes, myelocytes and metamyelocytes) > 1% indicates that a LEFT SHIFT is Present. Performed By: #### L 500.3400, L500.2500, L100.0100, L501.2450 #### [facility] [address] [place], [address] Lymphocytes/100 WBC (Bld) 21.6 % Normal 19-41 [facility] Comment on above: Performed By: #### L 500.3400, L500.2500, L100.0100, L501.2450 #### [facility] [address] [place], [address] MCH (RBC) [Entitic mass] 27.5 pg Normal 27.0-32.0 [facility] Comment on above: Performed By: #### L 500.3400, L500.2500, L100.0100, L501.2450 #### [facility] [address] [place], [address] MCHC (RBC) [Mass/Vol] 33.2 g/dL Normal 32-36 [facility] Comment on above: Performed By: #### L 500.3400, L500.2500, L100.0100, L501.2450 #### [facility] [address] [place], [address] MCV (RBC) [Entitic vol] 82.8 fL Normal 81-99 [facility] Comment on above: Performed By: #### L 500.3400, L500.2500, L100.0100, L501.2450 #### [facility] [address] [place], [address] Monocytes/100 WBC (Bld) 11.0 % High 0-10 [facility] Comment on above: Performed By: #### L 500.3400, L500.2500, L100.0100, L501.2450 #### [facility] [address] [place], [address] Neutrophils/100 WBC (Bld) 65.2 % Normal 47-70 [facility] Comment on above: Performed By: #### L 500.3400, L500.2500, L100.0100, L501.2450 #### [facility] [address] [place], [address] Nucleated RBC (Bld) [#/Vol] 0 10*3/uL Normal 0-5 [facility] Comment on above: Performed By: #### L 500.3400, L500.2500, L100.0100, L501.2450 #### [facility] [address] [place], [address] Platelet mean volume (Bld) [Entitic vol] 10.0 fL Normal 6.2-12.0 [facility] Comment on above: Performed By: #### L 500.3400, L500.2500, L100.0100, L501.2450 #### [facility] [address] [place], [address] Platelets (Bld) [#/Vol] 311 10*3/uL Normal 150-450 [facility] Comment on above: Performed By: #### L 500.3400, L500.2500, L100.0100, L501.2450 #### [facility] [address] [place], [address] RBC (Bld) [#/Vol] 4.48 10*6/uL Normal 4.2-5.4 [facility] Comment on above: Performed By: #### L 500.3400, L500.2500, L100.0100, L501.2450 #### [facility] [address] [place], [address] RDW SD 43.8 fl Normal 35.1-43.9 [facility] Comment on above: Performed By: #### L 500.3400, L500.2500, L100.0100, L501.2450 #### [facility] [address] [place], [address] WBC (Bld) [#/Vol] 10.2 10*3/uL Normal 4.4-11.0 [facility] Comment on above: Performed By: #### L 500.3400, L500.2500, L100.0100, L501.2450 #### [facility] [address] [place], [address] Carbon dioxide, total [Moles /volume] in Central venous bloodOrdered By: James Talbert on 01-07-2025 CO2 [Moles/Vol] 22.1 mmol/L 21.0-32.0 [facility] Chloride assayOrdered By: Hilary Talbert on 01-07-2025 Chloride [Moles/Vol] 103 mmol/L 98-108 [facility] Eosinophil percentageOrdered By: James Talbert on 01-07-2025 Eosinophils/100 WBC (Bld) 1.6 % 0-5 [facility] Erythrocyte distribution wid th (RBC) [Ratio]Ordered By: James Talbert on 01-07-2025 Erythrocyte distribution width (RBC) [Entitic vol] 43.8 fL 35.1-43.9 [facility] Erythrocyte distribution wid th ratioOrdered By: James Talbert on 01-07-2025 Erythrocyte distribution width (RBC) [Ratio] 14.6 % 11.6-14.6 [facility] Erythrocyte distribution wid th standard deviationOrdered By: James Talbert on 01-07-2025 Erythrocyte distribution width (RBC) [Ratio] 43.8 fl 35.1-43.9 [facility] Estimation of creatinine gigi aranceOrdered By: James Talbert on 01-07-2025 Estimated Creatinine Clearance Calc 129.52 ml/min 50-250 [facility] GFR/1.73 sq M.predicted wanda g non-blacks MDRD (S/P/Bld) [Vol rate/Area]Ordered By: James Talbert on 01-07-2025 Estimated GFR (MDRD) Non-Af Amer 85 >60 [facility] Comment on above: mL/min/1.73m2 CKD-EP I Creatinine Equation (2020) Glomerular filtration rate ( GFR) estimation/1.73 sq m using serum, plasma, or whole bOrdered By: James Talbert on 01-07-2025 GFR/1.73 sq M.predicted among non-blacks MDRD (S/P/Bld) [Vol rate/Area] 85 mL/min/{1.73_m2} >60 [facility] Comment on above: mL/min/1.73m2 CKD-EP I Creatinine Equation (2020) Hematocrit Auto (Bld) [Volum e fraction]Ordered By: James Talbert on 01-07-2025 Hematocrit (Bld) [Volume fraction] 37.1 % 37-47 [facility] Hemoglobin measurementOrdere d By: James Talbert on 01-07-2025 Hemoglobin (Bld) [Mass/Vol] 12.3 g/dL 12.0-15.0 [facility] Immature granulocytes/100 WB C Auto (Bld)Ordered By: James Talbert on 01-07-2025 Immature granulocytes/100 WBC (Bld) 0.300 % 0.0-0.9 [facility] Comment on above: IG% - Immature Granu locytes (promyelocytes, myelocytes and metamyelocytes) > 1% indicates that a LEFT SHIFT is Present. Ketones Test strip Ql (U)Ord ered By: James Talbert on 01-07-2025 Ketones Ql (U) Negative Negative [facility] - Chemistry and C hemistry - challengeOrdered By: James Talbert on 01-07-2025 AST [Catalytic activity/Vol] 21 U/L <32 [facility] Lipaseon 01-07-2025 Lipase [Catalytic activity/Vol] 18 U/L Normal 13-75 [facility] Comment on above: Result Comment: Janet murillo note: LIPASE revised reference range effective 23. New Lipase methodology. Expected to produce lower values than the previous assay method. NEW Reference Range: 13 - 75 U/L Performed By: #### L 500.3400, L500.2500, L100.0100, L501.2450 #### [facility] [address] [place], [place], [address] Lipase measurementOrdered By : James Talbert on 01-07-2025 Lipase [Catalytic activity/Vol] 18 U/L 13-75 [facility] Comment on above: Please note:LIPASE r evised reference range effective 23. New Lipase methodology. Expected to produce lower values than the previous assay method. NEW Reference Range: 13 - 75 U/L Liver Profileon 01-07-2025 Albumin [Mass/Vol] 3.8 g/dL Normal 3.5-5.0 [facility] Comment on above: Performed By: #### L 500.3400, L500.2500, L100.0100, L501.2450 #### [facility] [address] [place], [address] ALK PHOS 65 U/L Normal 35-104 [facility] Comment on above: Performed By: #### L 500.3400, L500.2500, L100.0100, L501.2450 #### [facility] [address] [place], [address] ALT [Catalytic activity/Vol] 19 U/L Normal <=34 [facility] Comment on above: Performed By: #### L 500.3400, L500.2500, L100.0100, L501.2450 #### [facility] [address] [place], [address] AST [Catalytic activity/Vol] 21 U/L Normal <=31 [facility] Comment on above: Performed By: #### L 500.3400, L500.2500, L100.0100, L501.2450 #### [facility] [address] [place], [address] Bilirubin [Mass/Vol] 0.30 mg/dL Normal 0.00-1.30 [facility] Comment on above: Performed By: #### L 500.3400, L500.2500, L100.0100, L501.2450 #### [facility] [address] [place], [address] Bilirubin.direct [Mass/Vol] 0.11 mg/dL Normal 0.00-0.30 [facility] Comment on above: Performed By: #### L 500.3400, L500.2500, L100.0100, L501.2450 #### [facility] [address] [place], [address] Globulin (S) [Mass/Vol] 3.4 g/dL Normal 2.2-4.2 [facility] Comment on above: Performed By: #### L 500.3400, L500.2500, L100.0100, L501.2450 #### [facility] [address] [place], [address] T PROT 7.2 g/dL Normal 5.9-8.4 [facility] Comment on above: Performed By: #### L 500.3400, L500.2500, L100.0100, L501.2450 #### [facility] [address] [place], [address] Lymphocytes Auto (Unsp spec) [#/Vol]Ordered By: James Talbert on 01-07-2025 Lymphocytes (Bld) [#/Vol] 2.20 10*3/uL 0.83-4.51 [facility] Lymphocytes/100 WBC Auto (Un sp spec)Ordered By: James Talbert on 01-07-2025 Lymphocytes/100 WBC (Bld) 21.6 % 19-41 [facility] MCV (mean corpuscular volume ) determinationOrdered By: James Talbert on 01-07-2025 MCV (RBC) [Entitic vol] 82.8 fL 81-99 [facility] Mean corpuscular hemoglobin (MCH) determinationOrdered By: James Talbert on 01-07-2025 MCH (RBC) [Entitic mass] 27.5 pg 27.0-32.0 [facility] Mean corpuscular hemoglobin concentration (MCHC) determinationOrdered By: James Talbert on 01-07-2025 MCHC (RBC) [Mass/Vol] 33.2 g/dL 32-36 [facility] Mean platelet volume determi nationOrdered By: James Talbert on 01-07-2025 Platelet mean volume (Bld) [Entitic vol] 10.0 fL 6.2-12.0 [facility] Microscopic analysis of urin e for red blood cells (RBC)Ordered By: James Talbert on 01-07-2025 Microscopic analysis of urine for red blood cells (RBC) 0-5 SEEN /hpf 0-5 [facility] Monocyte percentageOrdered B y: James Talbert on 01-07-2025 Monocytes/100 WBC (Bld) 11.0 % High 0-10 [facility] Mucus LM Ql (Urine sed)Order ed By: James Talbert on 01-07-2025 Mucus Ql (Urine sed) 1+ /hpf [facility] Neutrophil percentageOrdered By: James Talbert on 01-07-2025 Neutrophils/100 WBC (Bld) 65.2 % 47-70 [facility] Nitrite Test strip Ql (U)Ord ered By: James Talbert on 01-07-2025 Nitrite Ql (U) Negative Negative [facility] Nucleated red blood cell per centageOrdered By: James Talbert on 01-07-2025 Nucleated RBC/100 WBC (Bld) [Ratio] 0 % 0-5 [facility] Platelet countOrdered By: Hilary Talbert on 01-07-2025 Platelets (Bld) [#/Vol] 311 10*3/uL 150-450 [facility] Potassium (Unsp spec) [Mass/ Vol]Ordered By: James Talbert on 01-07-2025 Potassium [Moles/Vol] 4.0 mmol/L 3.3-5.1 [facility] Potassium measurement (mass/ volume)Ordered By: James Talbert on 01-07-2025 Potassium (Unsp spec) [Mass/Vol] 4.0 mmol/L 3.3-5.1 [facility] Protein Test strip Ql (U)Ord ered By: James Talbert on 01-07-2025 Protein Ql (U) 15 mg/dl High Negative [facility] RBC Auto (Bld) [#/Vol]Ordere d By: James Talbert on 01-07-2025 RBC (Bld) [#/Vol] 4.48 10*6/uL 4.2-5.4 [facility] Serum creatinine measurement (mass/volume)Ordered By: James Talbert on 01-07-2025 Creatinine [Mass/Vol] 0.83 mg/dL 0.70-1.20 [facility] Serum globulin measurementOr dered By: James Talbert on 01-07-2025 Globulin (S) [Mass/Vol] 3.4 g/dL 2.2-4.2 [facility] Serum glucose measurement (m ass/volume)Ordered By: James Talbert on 01-07-2025 Glucose [Mass/Vol] 100 mg/dL High 70-99 [facility] Serum or plasma alanine barajas otransferase (ALT) measurementOrdered By: James Talbert on 01-07-2025 ALT [Catalytic activity/Vol] 19 U/L <35 [facility] Serum or plasma albumin gadiel urement (mass/volume)Ordered By: James Talbert on 01-07-2025 Albumin [Mass/Vol] 3.8 g/dL 3.5-5.0 [facility] Serum or plasma alkaline lalita sphatase measurementOrdered By: James Talbert on 01-07-2025 ALP [Catalytic activity/Vol] 65 U/L 35-104 [facility] Serum or plasma calcium gadiel urement (mass/volume)Ordered By: James Talbert on 01-07-2025 Calcium [Mass/Vol] 8.9 mg/dL 7.6-11.0 [facility] Serum or plasma urea nitroge n measurement (mass/volume)Ordered By: James Talbert on 01-07-2025 Urea nitrogen [Mass/Vol] 15 mg/dL 4-19 [facility] Sodium levelOrdered By: Yomi Talbert on 01-07-2025 Sodium [Moles/Vol] 137 mmol/L 133-145 [facility] Squamous epithelial cells de tection in urine sediment by light microscopyOrdered By: James Talbert on 01-07-2025 Epithelial cells.squamous LM Ql (Urine sed) 25-50 SEEN /hpf 5-10 [facility] Total proteinOrdered By: Alfredo Talbert on 01-07-2025 Protein [Mass/Vol] 7.2 g/dL 5.9-8.4 [facility] Urinalysis, Completeon 01-07 BILIRUBIN URINE Negative Normal Negative [facility] Comment on above: Order Comment: ARIK CTOR TO SPECIFY Performed By: #### L 400.0001 #### [facility] [address] [place], [address] Clarity (U) Clear Normal Clear [facility] Comment on above: Order Comment: ARIK CTOR TO SPECIFY Performed By: #### L 400.0001 #### [facility] [address] [place], [address] Color (U) Yellow Normal Yellow [facility] Comment on above: Order Comment: ARIK CTOR TO SPECIFY Performed By: #### L 400.0001 #### [facility] [address] [place], [address] GLUCOSE, UR Normal Normal Normal [facility] Comment on above: Order Comment: ARIK CTOR TO SPECIFY Performed By: #### L 400.0001 #### [facility] [address] [place], [address] KETONE UR Negative Normal Negative [facility] Comment on above: Order Comment: ARIK CTOR TO SPECIFY Performed By: #### L 400.0001 #### [facility] [address] [place], [address] LEUK ESTERASE 500 /ul Abnormal Negative [facility] Comment on above: Order Comment: ARIK CTOR TO SPECIFY Performed By: #### L 400.0001 #### [facility] [address] [place], [address] Nitrite Ql (U) Negative Normal Negative [facility] Comment on above: Order Comment: ARIK CTOR TO SPECIFY Performed By: #### L 400.0001 #### [facility] [address] [place], [address] OCCULT BLOOD-UR 25 /ul Abnormal Negative [facility] Comment on above: Order Comment: ARIK CTOR TO SPECIFY Performed By: #### L 400.0001 #### [facility] [address] [place], [address] pH UR 7.0 Normal 5.0 - 8.0 [facility] Comment on above: Order Comment: ARIK CTOR TO SPECIFY Performed By: #### L 400.0001 #### [facility] [address] [place], [address] PROT DIPSTX 15 mg/dl Abnormal Negative [facility] Comment on above: Order Comment: ARIK CTOR TO SPECIFY Performed By: #### L 400.0001 #### [facility] [address] [place], [place], [id number] SP.GR. DIPSTX 1.015 Normal 1.002-1.030 [facility] Comment on above: Order Comment: ARIK CTOR TO SPECIFY Performed By: #### L 400.0001 #### [facility] [address] [place], [address] UROBILI Normal Normal Normal [facility] Comment on above: Order Comment: ARIK CTOR TO SPECIFY Performed By: #### L 400.0001 #### [facility] [address] [place], [place], [address] Urine clarityOrdered By: Alfredo Talbert on 01-07-2025 Clarity (U) Clear Clear [facility] Urine color determinationOrd ered By: James Talbert on 01-07-2025 Color (U) Yellow Yellow [facility] Urine glucose detectionOrder ed By: James Talbert on 01-07-2025 Glucose Ql (U) Normal mg/dl Normal [facility] Urine leukocyte esterase det ection by dipstickOrdered By: James Talbert on 01-07-2025 Leukocyte esterase Test strip Ql (U) 500 /ul High Negative [facility] Urine pHOrdered By: James nick on 01-07-2025 pH (U) 7.0 [pH] 5.0 - 8.0 [facility] Urine sediment bacteria coun t by microscopy (number/high power field)Ordered By: James Talbert on 01-07-2025 Bacteria LM.HPF (Urine sed) [#/Area] 3 /[HPF] None Seen [facility] Urine specific gravity measu rementOrdered By: James Talbert on 01-07-2025 Specific gravity (U) [Rel density] 1.015 1.002-1.030 [facility] Urine urobilinogen measureme ntOrdered By: James Talbert on 01-07-2025 Urobilinogen Ql (U) Normal mg/dl Normal [facility] White blood cell (WBC) count Ordered By: James Talbert on 01-07-2025 WBC (Bld) [#/Vol] 10.2 10*3/uL 4.4-11.0 [facility] White blood cell countOrdere d By: James Talbert on 01-07-2025 White blood cell count >100 SEEN /hpf 0-5 [facility] Vital Signs Date Time Vital Sign Value Performing Clinician Faci lity 01-08-2025 00:08-0400 Body temperature 97.5 [degF] Dr. James Talbert DO Work Phone: [facility] 01-08-2025 00:08-0400 Heart rate 65 /min Dr. James Talbert DO Work Phone: [facility] 01-08-2025 00:08-0400 Respiratory rate 15 /min Dr. James Talbert DO Work Phone: [facility] 01-08-2025 00:08-0400 SaO2% (BldA) [Mass fraction] 98 % Dr. James Talbert DO Work Phone: [facility] 01-07-2025 22:14-0400 Body height 180.[address] James Talbert DO Work Phone: [facility] 01-07-2025 22:14-0400 Body mass index (BMI) [Ratio] 46.8 kg/m2 Dr. James Talbert DO Work Phone: [facility] 01-07-2025 22:14-0400 Body weight 152.[address] James Talbert DO Work Phone: [facility] 01-07-2025 22:14-0400 Diastolic blood pressure 93 mm[Hg] Dr. James Talbert DO Work Phone: [facility] 01-07-2025 22:14-0400 Systolic blood pressure 160 mm[Hg] Dr. James Talbert DO Work Phone: [facility] Encounters Encounter Date Encounter Type Care Provider Facility Start: 03-31-2025 ambulatory Radha Blackman NP Fa cility:[facility] Start: 03-02-2025 End: 03-02-[address] James Talbert DO Work Phone: [facility] Work Phone: Start: 03-02-2025 End: 03-02-2025 Patient encounter procedure Radha Blackman DIRECTOR DATA ARCHITECTURE-C -Pulmonary Services/Neurology Work Phone: Start: 03-02-2025 End: 03-02-2025 ambulatory Radha Blackman DIRECTOR DATA ARCHITECTURE Facility:[facility] Start: 01-07-2025 End: 01-08-2025 Emergency department patient visit Dr. James Talbert DO Work Phone: -Emergency Department Work Phone: Procedures Date Procedure Procedure Detail Performing Clinician Start: 01-07-2025 Urnls dip stick/tabl et reagent auto microscopy Dr. James Talbert DO Work Phone: Start: 01-07-[address] James Talbert DO Work Phone: Start: 01-07-2025 Computed tomography of abdomen and pelvis with intravenous contrast Dr. James Talbert DO Work Phone: Plan of Treatment Date Care Activity Detail Author Start: 01-08-2025 [facility] Bilirubin measuremen t, urine [facility] Glucose [Presence] i n Urine [facility] Ketones [Presence] i n Urine [facility] Microscopic urinalysis [facility] Organism count, microscopic method [facility] Patient Education ED Diverticulitis [facility] Work Phone: Patient referral [facility] Work Phone: pH of Urine [facility] Specific gravity of Urine [facility] Urine blood test [facility] Urine dipstick for leukocyte esterase [facility] Urine dipstick for nitrite [facility] Urine dipstick for protein [facility] Urine examination [facility] Urine microscopy: epithelial cells [facility] Urine microscopy: re d cells [facility] Urobilinogen [Presen ce] in Urine [facility] White blood cell count [facility] Payers Date Payer Category Payer Unknown [id number] 2025 Self-pay 2025 Unknown [id number] 2025 Unknown Unknown [id number] [id number] Unknown [id number] Unknown [id number] [id number] [id number] Unknown [id number] [id number] Social History Date Type Detail Facility Start: 01-07-2025 Tobacco smoking stat [facility] Never smoked tobacco (finding) [facility] Start: 01-08-2025 Sex Female (finding) [facility] Start: 1970 Sex Assigned At Female [facility] Radiology Diagnostic study note 01-07-2025 Note Date & Type Note Facility 01-07-2025 Radiology Diagnostic study note [facility] Imaging Services [address] [place], [place] [address] Abdomen/Pelvis W IV Cont ONLY MR#: [id number] Acct: [id number] Name: ARAVIND VERGARA Meryl Rep #: [id number] : 1970 F 54 From: Cyn Contreras MD PCP: Radha Blackman, DIRECTOR DATA ARCHITECTURE-C Status: RE G ER Study:Abdomen/Pelvis W IV Cont ONLY Date of E xam: 01/07/25 Exam# [id number] Ordering Dr: Hilary Talbert DO PROCEDURE: ABDOMEN/PELVIS W IV CONT ONLY 01/07/2025 REASON FOR EXAM: RLQ PAIN TECHNIQUE: Abdomen and pelvis CT with intravenous contrast. Coronal and Sagittal reconstruction series were provided. PATIENT PREPARATION: Per protocol ORAL CONTRAST TYPE: None. AMOUNT: mL CONTRAST: Omnipaque 350 VOLUME: 100 mL Not Provided Gauge IV One or more dose reduction techniques were used (e.g., Automated exposure control, adjustment of the mA and/or kV according to patient size, use of iterative reconstruction technique. COMPARISON: None FINDINGS: Lung bases: Unremarkable Liver: Hepatomegaly, craniocaudal length 22 cm. Hepatic steatosis. 20 mm low-attenuation lesion left hepatic lobe. 12 mm inferior right hepatic lobe hypervascular lesion. Additional 12 mm inferior right hepatic lobe low-attenuation lesion. Gallbladder: No ductal dilation. Gallbladder is unremarkable. Spleen: No splenomegaly. Pancreas: Normal size without evidence of mass surrounding inflammation or ductal dilation. Adrenals: Unremarkable Kidneys: Normal renal sizes. No hydronephrosis. Bladder: Urinary bladder is unremarkable Reproductive Organs: 4.1 cm left adnexal cyst. Bowel: Status post gastric sleeve resection. No bowel dilation. Colonic diverticulosis with wall thickening and surrounding soft tissue stranding involving the descending and proximal sigmoid colon, compatible with acute diverticulitis. No pneumoperitoneum or drainable fluid collection. Appendix is normal.. Lymph nodes: No suspicious adenopathy. Vasculature: The abdominal aorta and IVC are normal. Peritoneum / Retroperitoneum: No ascites or pneumoperitoneum. Bones: No suspicious osseous lesions. Soft tissues: Small fat containing umbilical hernia. CT/Abdomen/Pelvis W IV Cont ONLY IMPRESSION: 1. Findings compatible with acute sigmoid diverticulitis. No pneumoperitoneum or drainable fluid collection. 2. Hepatomegaly and steatosis with multiple low-attenuation and right inferior lobe hypervascular lesion. These may represent hemangiomas. Recommend further evaluation with MRI of the liver with and without contrast. 4.1 cm left adnexal cysts. Recommend further evaluation with nonemergent pelvic ultrasound. Reading Location: [facility] CC: DELFINO Blackman; James Talbert DO ~ [employer] Supervisor: Signed [facility] Discharge instructions 01-07-2025 Note Date & Type Note Facility 01-07-2025 Hospital Discharg e instructions Additional Instructions Your CT scan showed no signs of appendicitis but did show inflammation of your sigmoid colon consistent with diverticulitis. Take the antibiotic as directed to help resolve the infection which will resolve your pain. This will typically take 2 to 3 days for improvement. Continue with Tylenol and/or Motrin for pain control and use the Zofran as needed for relief of nausea and vomiting. If you develop a fever or have increasing pain or any further concerns please return for repeat evaluation. [facility] Work Phone: Evaluation note Note Date & Type Note Facility Evaluation note No assessment information availa ble [facility] Work Phone: Reason for referral (narrative) Note Date & Type Note Facility Reason for referral (narrative) No reason for referral information available [facility] Work Phone: Chief Complaint and Reason for Visit Chief Complaint Admit Date ABD HONEY January 07, 2025 10:1 3pm Chief Complaint Admit Date ABD HONEY January 07, 2025 10:1 3pm PALPITATIONS, SOB, FATIGUE March 02 6:42am Family History No Family History Records Found Relationship Condition Age at Onset Recorded Date/T adolph father Cardiac disease Unknown mother Cardiac disease Unknown Advance Directives No Advanced Directives Records Found Advance Directive Response Recorded Date/ Time Living Will No January 07, 2025 10:43pm Do you have a Healthcare Power of Robotype Operator? No January 07, 2025 10:43pm Advance Directives No July 12, 2015 12:51pm Summary Purpose Additional Source Comments Care Teams (unrecognized sec tion and content) Team Status: Active Member Role Status Dates Radha Blackman NP, DIRECTOR DATA ARCHITECTURE-C Primary Care Provider Activ e Team Status: Inactive Member Role Status Dates Dr. James Talbert DO Emergency Provider Active Start: January 07, 2025 End: January 08, 2025 Radha Blackman NP, DIRECTOR DATA ARCHITECTURE-C Primary Care Provider Activ e Start: January 07, 2025 End: January 08, 2025 Team Status: Inactive Member Role Status Dates Dr. James Talbert DO Attending Provider Active Start: January 07, 2025 End: January 08, 2025 Dr. James Talbert DO Emergency Provider Active Start: January 07, 2025 End: January 08, 2025 Radha Blackman NP, DIRECTOR DATA ARCHITECTURE-C Primary Care Provider Activ e Start: January 07, 2025 End: January 08, 2025 Team Status: Inactive Member Role Status Dates Radha Blackman NP, DIRECTOR DATA ARCHITECTURE-C Primary Care Provider Activ e Start: March 02, 2025 End: March 02, 2025 Radha Blackman NP, NP-C Attending Provider Active Start: March 02, 2025 End: March 02, 2025 Radha Blackman NP, AWA-C Referring Provider Active Start: March 02, 2025 End: March 02, 2025 Goals (unrecognized section and content) Goals may be documented in a n alternate sectionGoals may be documented in an alternate section INFORMATION SOURCE (unrecogn ized section and content) DATE CREATED AUTHOR 03/30/2025 [facility] FOR RECORDS PERTAINING TO PATIENTS WHO ARE OR HAVE BEEN ENROLLED IN A CHEMICAL DEPENDENCY/SUBSTANCEABUSE PROGRAM, SOME INFORMATION MAY BE OMITTED. This clinical summary was aggregated from multiple sources. Caution should be exercised in using it in the provision of clinical care. This summary normalizes information from multiple sources, and as a consequence, information in this document may materially change the coding, format and clinical context of patient data. In addition, data may be omitted in some cases. CLINICAL DECISIONS SHOULD BE BASED ON THE PRIMARY CLINICAL RECORDS. [facility] [employer] provides no warranty or guarantee of the accuracy or completeness of information in this document.
--- OUTSIDE RECORDS SUMMARY | 2025-03-31 06:09 | XMS RPT_ITS | CCD ---
Author Organization [facility] Care Team Providers Care Hub Borer Name Role Phone Dr. James Talbert DO Emergency Provider [phone] Yehuda TAX RECORD CLERK-C, Radha Shelly Primary Care Provider Dr. James Talbert DO Attending Provider [phone] Kappbettye TAX RECORD CLERK-C, Radha Shelly Attending Provider [phone] Kappbettye TAX RECORD CLERK-C, Radha Shelly Referring Provider Kappbettye TAX RECORD CLERK, Radharamandeep Alexandere Attending Unavailabl e Kapper TAX RECORD CLERK, Radha Shelly Referring Unavailabl e Kapper TAX RECORD CLERK, Radha Shelly Primary Care Unavailabl e James Talbert Attending Unavailable Kapper TAX RECORD CLERK, Radha Shelly Primary Care Unavailabl e Kapper TAX RECORD CLERK, Radha Shelly Referring Unavailabl e Kapper TAX RECORD CLERK, Radha Shelly Primary Care Unavailabl e Kapper TAX RECORD CLERK, Radha Shelly Attending Unavailabl e Kapper TAX RECORD CLERK, Radha Shelly Referring Unavailabl e Kapper TAX RECORD CLERK, Radha Shelly Primary Care Unavailabl e Kendall [...] 20 mg/ml oral solution (2 sources) Uncompetitive Y-plwazd-P-asparta te Receptor Antagonist, Sigma-1 Agonist Start: 4 [...] Department Summary on 01-08-2025 Emergency Department Summary [facility] Medical Records Department [address] [place] [address] Emergency Department Summary 01/08/25 MR#: [id number] Acct: [id number] Name: ARAVIND VERGARA Rep #: [id number] : 1970 54 From: James Talbert DO [...] infection and therefore comes in for evaluation [facility] Medical History (Updated 01/08/25 @ 02:24 by [...] jaundice or (more content not included)... Normal [facility] Urinalysis, Completeon 01-08 BACTERIA 3+ /hpf Normal None Seen [facility] Comment on above: Order Comment: ARIK CTOR TO SPECIFY Performed By: #### L 400.0001 #### [facility] [address] [facility] [place], [place], [id number] Mucus Ql (Urine sed) 1+ /hpf Normal [facility] Comment on above: Order Comment: ARIK CTOR TO SPECIFY Performed By: #### L 400.0001 #### [facility] [address] [place], [place], [id number] EPI,SQUAMOUS 25-50 SEEN Normal 5-10 [facility] Comment on above: Order Comment: ARIK CTOR TO SPECIFY Performed By: #### L 400.0001 #### [facility] [address] [place], [place], [id number] RBC 0-5 SEEN Normal 0-5 [facility] Comment on above: Order Comment: ARIK CTOR TO SPECIFY Performed By: #### L 400.0001 #### [facility] [address], [place], [address] WBC >100 SEEN Normal 0-5 [facility] Comment on above: Order Comment: COLLE CTOR TO SPECIFY Performed By: #### L 400.0001 #### [facility] [address], [place], [address] Abdomen/Pelvis W IV Cont ONL Yon 01-07-2025 Abdomen/Pelvis W IV Cont ONLY [facility] Imaging Services [address] [place] [address] Abdomen/Pelvis W IV Cont ONLY MR#: [id number] Acct: [id number] Name: ARAVIND VERGARA Rep #: [id number] : 1970 F 54 From: Juan canela MD PCP: Radha Blackman, TAX RECORD CLERK-C Status: REG ER Study: Abdomen/Pelvis W IV Cont ONLY Date of Exam: Exam# [id number] Ordering Dr: James Talbert DO PROCEDURE: ABDOMEN/PELVIS [...] evaluation with nonemergent pelvic ultrasound. Reading Location: [facility] CC: DELFINO Blackman; James Talbert DO Hand Trucker: Signed Normal [facility] Absolute lymphocyte countOrd ered By: James Talbert on 01-07-2025 Lymphocytes Auto (Unsp spec) [#/Vol] 2.20 10*3/uL 0.83-4.51 [facility] Absolute neutrophil countOrd ered By: James Talbert on 01-07-2025 Neutrophils (Bld) [#/Vol] 6.6 10*3/uL 2.0-7.7 [facility] Anion gap in Serum or Plasma Ordered By: James Talbert on 01-07-2025 Anion gap [Moles/Vol] 11 mmol/L 5-15 [facility] Automated lymphocyte count a s percentage of total leukocytesOrdered By: James Talbert on 01-07-2025 Lymphocytes/100 WBC Auto (Unsp spec) 21.6 % 19-41 [facility] BUN/creatinine ratioOrdered By: James Talbert on 01-07-2025 Urea nitrogen/Creatinine [Mass ratio] 17.6 mg/mg 10- [facility] Basic Metabolic Profile (BMP )on 01-07-2025 BUN/CRE 17.6 RATIO Normal - [facility] Comment on above: Performed By: #### L 500.3400, L500.2500, L100.0100, L501.2450 #### [facility] [address] [place], [address] Calcium [Mass/Vol] 8.9 mg/dL Normal 7.6-11.0 [facility] Comment on above: Performed By: #### L 500.3400, L500.2500, L100.0100, L501.2450 #### [facility] [address] [place], [address] Chloride [Moles/Vol] 103 mmol/L Normal 98-108 [facility] Comment on above: Performed By: #### L 500.3400, L500.2500, L100.0100, L501.2450 #### [facility] [address] [place], [address] CO2 [Moles/Vol] 22.1 mmol/L Normal 21.0-32.0 [facility] Comment on above: Performed By: #### L 500.3400, L500.2500, L100.0100, L501.2450 #### [facility] [address] [place], [address] Creatinine [Mass/Vol] 0.83 mg/dL Normal 0.70-1.20 [facility] Comment on above: Performed By: #### L 500.3400, L500.2500, L100.0100, L501.2450 #### [facility] [address] [place], [address] ECRCL 129.52 ml/min Normal 50-250 [facility] Comment on above: Performed By: #### L 500.3400, L500.2500, L100.0100, L501.2450 #### [facility] [address] [place], [address] GAP 11 Normal 5-15 [facility] Comment on above: Performed By: #### L 500.3400, L500.2500, L100.0100, L501.2450 #### [facility] [address] [place], [address] GFR/1.73 sq M.predicted among non-blacks MDRD (S/P/Bld) [Vol rate/Area] 85 mL/min/{1.73_m2} Normal >60 [facility] Comment on above: Result Comment: mL/m in/1.73m2 CKD-EPI Creatinine Equation (2020) Performed By: #### L 500.3400, L500.2500, L100.0100, L501.2450 #### [facility] [address] [place], [address] Glucose [Mass/Vol] 100 mg/dL High 70-99 [facility] Comment on above: Performed By: #### L 500.3400, L500.2500, L100.0100, L501.2450 #### [facility] [address] [place], [address] Potassium [Moles/Vol] 4.0 mmol/L Normal 3.3-5.1 [facility] Comment on above: Performed By: #### L 500.3400, L500.2500, L100.0100, L501.2450 #### [facility] [address] [place], [address] Sodium [Moles/Vol] 137 mmol/L Normal 133-145 [facility] Comment on above: Performed By: #### L 500.3400, L500.2500, L100.0100, L501.2450 #### [facility] [address] [place], [address] Urea nitrogen [Mass/Vol] 15 mg/dL Normal 4-19 [facility] Comment on above: Performed By: #### L 500.3400, L500.2500, L100.0100, L501.2450 #### [facility] [address] [place], [address] Basophil percentageOrdered B y: James Talbert on 01-07-2025 Basophils/100 WBC (Bld) 0.3 % 0-1 [facility] Bilirubin Test strip Ql (U)O rdered By: James Talbert on 01-07-2025 Bilirubin Ql (U) Negative Negative [facility] Bilirubin directOrdered By: James Talbert on 01-07-2025 Bilirubin.direct [Mass/Vol] 0.11 mg/dL 0.00-0.30 [facility] Bilirubin, totalOrdered By: James Talbert on 01-07-2025 Bilirubin [Mass/Vol] 0.30 mg/dL 0.00-1.30 [facility] CBC W/Diff, Automatedon Absolute Lymph 2.20 X10 3/uL Normal 0.83-4.51 [facility] Comment on above: Performed By: #### L 500.3400, L500.2500, L100.0100, L501.2450 #### [facility] [address] [place], [address] Absolute Neut 6.6 X10 3/uL Normal 2.0-7.7 [facility] Comment on above: Performed By: #### L 500.3400, L500.2500, L100.0100, L501.2450 #### [facility] [address] [place], [address] Basophils/100 WBC (Bld) 0.3 % Normal 0-1 [facility] Comment on above: Performed By: #### L 500.3400, L500.2500, L100.0100, L501.2450 #### [facility] [address] [place], [address] Eosinophils/100 WBC (Bld) 1.6 % Normal 0-5 [facility] Comment on above: Performed By: #### L 500.3400, L500.2500, L100.0100, L501.2450 #### [facility] [address] [place], [address] Erythrocyte distribution width (RBC) [Ratio] 14.6 % Normal 11.6-14.6 [facility] Comment on above: Performed By: #### L 500.3400, L500.2500, L100.0100, L501.2450 #### [facility] [address] [place], [address] Hematocrit (Bld) [Volume fraction] 37.1 % Normal 37-47 [facility] Comment on above: Performed By: #### L 500.3400, L500.2500, L100.0100, L501.2450 #### [facility] [address] [place], [address] Hemoglobin (Bld) [Mass/Vol] 12.3 g/dL Normal 12.0-15.0 [facility] Comment on above: Performed By: #### L 500.3400, L500.2500, L100.0100, L501.2450 #### [facility] [address] [place], [address] IG% 0.300 Normal 0.0-0.9 [facility] Comment on above: Result Comment: IG% - Immature Granulocytes (promyelocytes, myelocytes and metamyelocytes) > 1% indicates that a LEFT SHIFT is Present. Performed By: #### L 500.3400, L500.2500, L100.0100, L501.2450 #### [facility] [address] [place], [address] Lymphocytes/100 WBC (Bld) 21.6 % Normal 19-41 [facility] Comment on above: Performed By: #### L 500.3400, L500.2500, L100.0100, L501.2450 #### [facility] [address] [place], [address] MCH (RBC) [Entitic mass] 27.5 pg Normal 27.0-32.0 [facility] Comment on above: Performed By: #### L 500.3400, L500.2500, L100.0100, L501.2450 #### [facility] [address] [place], [address] MCHC (RBC) [Mass/Vol] 33.2 g/dL Normal 32-36 [facility] Comment on above: Performed By: #### L 500.3400, L500.2500, L100.0100, L501.2450 #### [facility] [address] [place], [address] MCV (RBC) [Entitic vol] 82.8 fL Normal 81-99 [facility] Comment on above: Performed By: #### L 500.3400, L500.2500, L100.0100, L501.2450 #### [facility] [address] [place], [address] Monocytes/100 WBC (Bld) 11.0 % High 0-10 [facility] Comment on above: Performed By: #### L 500.3400, L500.2500, L100.0100, L501.2450 #### [facility] [address] [place], [address] Neutrophils/100 WBC (Bld) 65.2 % Normal 47-70 [facility] Comment on above: Performed By: #### L 500.3400, L500.2500, L100.0100, L501.2450 #### [facility] [address] [place], [address] Nucleated RBC (Bld) [#/Vol] 0 10*3/uL Normal 0-5 [facility] Comment on above: Performed By: #### L 500.3400, L500.2500, L100.0100, L501.2450 #### [facility] [address] [place], [address] Platelet mean volume (Bld) [Entitic vol] 10.0 fL Normal 6.2-12.0 [facility] Comment on above: Performed By: #### L 500.3400, L500.2500, L100.0100, L501.2450 #### [facility] [address] [place], [address] Platelets (Bld) [#/Vol] 311 10*3/uL Normal 150-450 [facility] Comment on above: Performed By: #### L 500.3400, L500.2500, L100.0100, L501.2450 #### [facility] [address] [place], [address] RBC (Bld) [#/Vol] 4.48 10*6/uL Normal 4.2-5.4 [facility] Comment on above: Performed By: #### L 500.3400, L500.2500, L100.0100, L501.2450 #### [facility] [address] [place], [address] RDW SD 43.8 fl Normal 35.1-43.9 [facility] Comment on above: Performed By: #### L 500.3400, L500.2500, L100.0100, L501.2450 #### [facility] [address] [place], [address] WBC (Bld) [#/Vol] 10.2 10*3/uL Normal 4.4-11.0 [facility] Comment on above: Performed By: #### L 500.3400, L500.2500, L100.0100, L501.2450 #### [facility] [address] [place], [address] Carbon dioxide, total [Moles /volume] in Central venous bloodOrdered By: James Talbert on 01-07-2025 CO2 [Moles/Vol] 22.1 mmol/L 21.0-32.0 [facility] Chloride assayOrdered By: Hilary Talbert on 01-07-2025 Chloride [Moles/Vol] 103 mmol/L 98-108 [facility] Eosinophil percentageOrdered By: James Talbert on 01-07-2025 Eosinophils/100 WBC (Bld) 1.6 % 0-5 [facility] Erythrocyte distribution wid th (RBC) [Ratio]Ordered By: James Talbert on 01-07-2025 Erythrocyte distribution width (RBC) [Entitic vol] 43.8 fL 35.1-43.9 [facility] Erythrocyte distribution wid th ratioOrdered By: James Talbert on 01-07-2025 Erythrocyte distribution width (RBC) [Ratio] 14.6 % 11.6-14.6 [facility] Erythrocyte distribution wid th standard deviationOrdered By: James Talbert on 01-07-2025 Erythrocyte distribution width (RBC) [Ratio] 43.8 fl 35.1-43.9 [facility] Estimation of creatinine gigi aranceOrdered By: James Talbert on 01-07-2025 Estimated Creatinine Clearance Calc 129.52 ml/min 50-250 [facility] GFR/1.73 sq M.predicted wanda g non-blacks MDRD (S/P/Bld) [Vol rate/Area]Ordered By: James Talbert on 01-07-2025 Estimated GFR (MDRD) Non-Af Amer 85 >60 [facility] Comment on above: mL/min/1.73m2 CKD-EP I Creatinine Equation (2020) Glomerular filtration rate ( GFR) estimation/1.73 sq m using serum, plasma, or whole bOrdered By: James Talbert on 01-07-2025 GFR/1.73 sq M.predicted among non-blacks MDRD (S/P/Bld) [Vol rate/Area] 85 mL/min/{1.73_m2} >60 [facility] Comment on above: mL/min/1.73m2 CKD-EP I Creatinine Equation (2020) Hematocrit Auto (Bld) [Volum e fraction]Ordered By: James Talbert on 01-07-2025 Hematocrit (Bld) [Volume fraction] 37.1 % 37-47 [facility] Hemoglobin measurementOrdere d By: James Talbert on 01-07-2025 Hemoglobin (Bld) [Mass/Vol] 12.3 g/dL 12.0-15.0 [facility] Immature granulocytes/100 WB C Auto (Bld)Ordered By: James Talbert on 01-07-2025 Immature granulocytes/100 WBC (Bld) 0.300 % 0.0-0.9 [facility] Comment on above: IG% - Immature Granu locytes (promyelocytes, myelocytes and metamyelocytes) > 1% indicates that a LEFT SHIFT is Present. Ketones Test strip Ql (U)Ord ered By: James Talbert on 01-07-2025 Ketones Ql (U) Negative Negative [facility] - Chemistry and C hemistry - challengeOrdered By: James Talbert on 01-07-2025 AST [Catalytic activity/Vol] 21 U/L <32 [facility] Lipaseon 01-07-2025 Lipase [Catalytic activity/Vol] 18 U/L Normal 13-75 [facility] Comment on above: Result Comment: Janet murillo note: LIPASE revised reference range effective 23. New Lipase methodology. Expected to produce lower values than the previous assay method. NEW Reference Range: 13 - 75 U/L Performed By: #### L 500.3400, L500.2500, L100.0100, L501.2450 #### [facility] [address] [place], [place], [address] Lipase measurementOrdered By : James Talbert on 01-07-2025 Lipase [Catalytic activity/Vol] 18 U/L 13-75 [facility] Comment on above: Please note:LIPASE r evised reference range effective 23. New Lipase methodology. Expected to produce lower values than the previous assay method. NEW Reference Range: 13 - 75 U/L Liver Profileon 01-07-2025 Albumin [Mass/Vol] 3.8 g/dL Normal 3.5-5.0 [facility] Comment on above: Performed By: #### L 500.3400, L500.2500, L100.0100, L501.2450 #### [facility] [address] [place], [address] ALK PHOS 65 U/L Normal 35-104 [facility] Comment on above: Performed By: #### L 500.3400, L500.2500, L100.0100, L501.2450 #### [facility] [address] [place], [address] ALT [Catalytic activity/Vol] 19 U/L Normal <=34 [facility] Comment on above: Performed By: #### L 500.3400, L500.2500, L100.0100, L501.2450 #### [facility] [address] [place], [address] AST [Catalytic activity/Vol] 21 U/L Normal <=31 [facility] Comment on above: Performed By: #### L 500.3400, L500.2500, L100.0100, L501.2450 #### [facility] [address] [place], [address] Bilirubin [Mass/Vol] 0.30 mg/dL Normal 0.00-1.30 [facility] Comment on above: Performed By: #### L 500.3400, L500.2500, L100.0100, L501.2450 #### [facility] [address] [place], [address] Bilirubin.direct [Mass/Vol] 0.11 mg/dL Normal 0.00-0.30 [facility] Comment on above: Performed By: #### L 500.3400, L500.2500, L100.0100, L501.2450 #### [facility] [address] [place], [address] Globulin (S) [Mass/Vol] 3.4 g/dL Normal 2.2-4.2 [facility] Comment on above: Performed By: #### L 500.3400, L500.2500, L100.0100, L501.2450 #### [facility] [address] [place], [address] T PROT 7.2 g/dL Normal 5.9-8.4 [facility] Comment on above: Performed By: #### L 500.3400, L500.2500, L100.0100, L501.2450 #### [facility] [address] [place], [address] Lymphocytes Auto (Unsp spec) [#/Vol]Ordered By: James Talbert on 01-07-2025 Lymphocytes (Bld) [#/Vol] 2.20 10*3/uL 0.83-4.51 [facility] Lymphocytes/100 WBC Auto (Un sp spec)Ordered By: James Talbert on 01-07-2025 Lymphocytes/100 WBC (Bld) 21.6 % 19-41 [facility] MCV (mean corpuscular volume ) determinationOrdered By: James Talbert on 01-07-2025 MCV (RBC) [Entitic vol] 82.8 fL 81-99 [facility] Mean corpuscular hemoglobin (MCH) determinationOrdered By: James Talbert on 01-07-2025 MCH (RBC) [Entitic mass] 27.5 pg 27.0-32.0 [facility] Mean corpuscular hemoglobin concentration (MCHC) determinationOrdered By: James Talbert on 01-07-2025 MCHC (RBC) [Mass/Vol] 33.2 g/dL 32-36 [facility] Mean platelet volume determi nationOrdered By: James Talbert on 01-07-2025 Platelet mean volume (Bld) [Entitic vol] 10.0 fL 6.2-12.0 [facility] Microscopic analysis of urin e for red blood cells (RBC)Ordered By: James Talbert on 01-07-2025 Microscopic analysis of urine for red blood cells (RBC) 0-5 SEEN /hpf 0-5 [facility] Monocyte percentageOrdered B y: James Talbert on 01-07-2025 Monocytes/100 WBC (Bld) 11.0 % High 0-10 [facility] Mucus LM Ql (Urine sed)Order ed By: James Talbert on 01-07-2025 Mucus Ql (Urine sed) 1+ /hpf [facility] Neutrophil percentageOrdered By: James Talbert on 01-07-2025 Neutrophils/100 WBC (Bld) 65.2 % 47-70 [facility] Nitrite Test strip Ql (U)Ord ered By: James Talbert on 01-07-2025 Nitrite Ql (U) Negative Negative [facility] Nucleated red blood cell per centageOrdered By: James Talbert on 01-07-2025 Nucleated RBC/100 WBC (Bld) [Ratio] 0 % 0-5 [facility] Platelet countOrdered By: Hilary Talbert on 01-07-2025 Platelets (Bld) [#/Vol] 311 10*3/uL 150-450 [facility] Potassium (Unsp spec) [Mass/ Vol]Ordered By: James Talbert on 01-07-2025 Potassium [Moles/Vol] 4.0 mmol/L 3.3-5.1 [facility] Potassium measurement (mass/ volume)Ordered By: James Talbert on 01-07-2025 Potassium (Unsp spec) [Mass/Vol] 4.0 mmol/L 3.3-5.1 [facility] Protein Test strip Ql (U)Ord ered By: James Talbert on 01-07-2025 Protein Ql (U) 15 mg/dl High Negative [facility] RBC Auto (Bld) [#/Vol]Ordere d By: James Talbert on 01-07-2025 RBC (Bld) [#/Vol] 4.48 10*6/uL 4.2-5.4 [facility] Serum creatinine measurement (mass/volume)Ordered By: James Talbert on 01-07-2025 Creatinine [Mass/Vol] 0.83 mg/dL 0.70-1.20 [facility] Serum globulin measurementOr dered By: James Talbert on 01-07-2025 Globulin (S) [Mass/Vol] 3.4 g/dL 2.2-4.2 [facility] Serum glucose measurement (m ass/volume)Ordered By: James Talbert on 01-07-2025 Glucose [Mass/Vol] 100 mg/dL High 70-99 [facility] Serum or plasma alanine barajas otransferase (ALT) measurementOrdered By: James Talbert on 01-07-2025 ALT [Catalytic activity/Vol] 19 U/L <35 [facility] Serum or plasma albumin gadiel urement (mass/volume)Ordered By: James Talbert on 01-07-2025 Albumin [Mass/Vol] 3.8 g/dL 3.5-5.0 [facility] Serum or plasma alkaline lalita sphatase measurementOrdered By: James Talbert on 01-07-2025 ALP [Catalytic activity/Vol] 65 U/L 35-104 [facility] Serum or plasma calcium gadiel urement (mass/volume)Ordered By: James Talbert on 01-07-2025 Calcium [Mass/Vol] 8.9 mg/dL 7.6-11.0 [facility] Serum or plasma urea nitroge n measurement (mass/volume)Ordered By: James Talbert on 01-07-2025 Urea nitrogen [Mass/Vol] 15 mg/dL 4-19 [facility] Sodium levelOrdered By: Yomi Talbert on 01-07-2025 Sodium [Moles/Vol] 137 mmol/L 133-145 [facility] Squamous epithelial cells de tection in urine sediment by light microscopyOrdered By: James Talbert on 01-07-2025 Epithelial cells.squamous LM Ql (Urine sed) 25-50 SEEN /hpf 5-10 [facility] Total proteinOrdered By: Alfredo Talbert on 01-07-2025 Protein [Mass/Vol] 7.2 g/dL 5.9-8.4 [facility] Urinalysis, Completeon 01-07 BILIRUBIN URINE Negative Normal Negative [facility] Comment on above: Order Comment: ARIK CTOR TO SPECIFY Performed By: #### L 400.0001 #### [facility] [address] [place], [address] Clarity (U) Clear Normal Clear [facility] Comment on above: Order Comment: ARIK CTOR TO SPECIFY Performed By: #### L 400.0001 #### [facility] [address] [place], [address] Color (U) Yellow Normal Yellow [facility] Comment on above: Order Comment: ARIK CTOR TO SPECIFY Performed By: #### L 400.0001 #### [facility] [address] [place], [address] GLUCOSE, UR Normal Normal Normal [facility] Comment on above: Order Comment: ARIK CTOR TO SPECIFY Performed By: #### L 400.0001 #### [facility] [address] [place], [address] KETONE UR Negative Normal Negative [facility] Comment on above: Order Comment: ARIK CTOR TO SPECIFY Performed By: #### L 400.0001 #### [facility] [address] [place], [address] LEUK ESTERASE 500 /ul Abnormal Negative [facility] Comment on above: Order Comment: ARIK CTOR TO SPECIFY Performed By: #### L 400.0001 #### [facility] [address] [place], [address] Nitrite Ql (U) Negative Normal Negative [facility] Comment on above: Order Comment: ARIK CTOR TO SPECIFY Performed By: #### L 400.0001 #### [facility] [address] [place], [address] OCCULT BLOOD-UR 25 /ul Abnormal Negative [facility] Comment on above: Order Comment: ARIK CTOR TO SPECIFY Performed By: #### L 400.0001 #### [facility] [address] [place], [address] pH UR 7.0 Normal 5.0 - 8.0 [facility] Comment on above: Order Comment: ARIK CTOR TO SPECIFY Performed By: #### L 400.0001 #### [facility] [address] [place], [address] PROT DIPSTX 15 mg/dl Abnormal Negative [facility] Comment on above: Order Comment: ARIK CTOR TO SPECIFY Performed By: #### L 400.0001 #### [facility] [address] [place], [place], [id number] SP.GR. DIPSTX 1.015 Normal 1.002-1.030 [facility] Comment on above: Order Comment: ARIK CTOR TO SPECIFY Performed By: #### L 400.0001 #### [facility] [address] [place], [address] UROBILI Normal Normal Normal [facility] Comment on above: Order Comment: ARIK CTOR TO SPECIFY Performed By: #### L 400.0001 #### [facility] [address] [place], [place], [id number] Urine clarityOrdered By: Alfredo Talbert on 01-07-2025 Clarity (U) Clear Clear [facility] Urine color determinationOrd ered By: James Talbert on 01-07-2025 Color (U) Yellow Yellow [facility] Urine glucose detectionOrder ed By: James Talbert on 01-07-2025 Glucose Ql (U) Normal mg/dl Normal [facility] Urine leukocyte esterase det ection by dipstickOrdered By: James Talbert on 01-07-2025 Leukocyte esterase Test strip Ql (U) 500 /ul High Negative [facility] Urine pHOrdered By: James nick on 01-07-2025 pH (U) 7.0 [pH] 5.0 - 8.0 [facility] Urine sediment bacteria coun t by microscopy (number/high power field)Ordered By: James Talbert on 01-07-2025 Bacteria LM.HPF (Urine sed) [#/Area] 3 /[HPF] None Seen [facility] Urine specific gravity measu rementOrdered By: James Talbert on 01-07-2025 Specific gravity (U) [Rel density] 1.015 1.002-1.030 [facility] Urine urobilinogen measureme ntOrdered By: James Talbert on 01-07-2025 Urobilinogen Ql (U) Normal mg/dl Normal [facility] White blood cell (WBC) count Ordered By: James Talbert on 01-07-2025 WBC (Bld) [#/Vol] 10.2 10*3/uL 4.4-11.0 [facility] White blood cell countOrdere d By: James Talbert on 01-07-2025 White blood cell count >100 SEEN /hpf 0-5 [facility] Vital Signs Date Time Vital Sign Value Performing Clinician Faci lity 01-08-2025 00:08-0400 Body temperature 97.5 [degF] Dr. James Talbert DO Work Phone: [facility] 01-08-2025 00:08-0400 Heart rate 65 /min Dr. James Talbert DO Work Phone: [facility] 01-08-2025 00:08-0400 Respiratory rate 15 /min Dr. James Talbert DO Work Phone: [facility] 01-08-2025 00:08-0400 SaO2% (BldA) [Mass fraction] 98 % Dr. James Talbert DO Work Phone: [facility] 01-07-2025 22:14-0400 Body height 180.[address] James Talbert DO Work Phone: [facility] 01-07-2025 22:14-0400 Body mass index (BMI) [Ratio] 46.8 kg/m2 Dr. James Talbert DO Work Phone: [facility] 01-07-2025 22:14-0400 Body weight 152.[address] James Talbert DO Work Phone: [facility] 01-07-2025 22:14-0400 Diastolic blood pressure 93 mm[Hg] Dr. James Talbert DO Work Phone: [facility] 01-07-2025 22:14-0400 Systolic blood pressure 160 mm[Hg] Dr. James Talbert DO Work Phone: [facility] Encounters Encounter Date Encounter Type Care Provider Facility Start: 03-31-2025 ambulatory Radha Blackman NP Fa cility:[facility] Start: 03-02-2025 End: 03-02-[address] James Talbert DO Work Phone: [facility] Work Phone: Start: 03-02-2025 End: 03-02-2025 Patient encounter procedure Radha Blackman TAX RECORD CLERK-C -Pulmonary Services/Neurology Work Phone: Start: 03-02-2025 End: 03-02-2025 ambulatory Radha Blackman TAX RECORD CLERK Facility:[facility] Start: 01-07-2025 End: 01-08-2025 Emergency department patient [...] Date Care Activity Detail Author Start: 01-08-2025 [facility] Bilirubin measuremen t, urine [facility] Glucose [Presence] i n Urine [facility] Ketones [Presence] i n Urine [facility] Microscopic urinalysis [facility] Organism count, microscopic method [facility] Patient Education ED Diverticulitis [facility] Work Phone: Patient referral [facility] Work Phone: pH of Urine [facility] Specific gravity of Urine [facility] Urine blood test [facility] Urine dipstick for leukocyte esterase [facility] Urine dipstick for nitrite [facility] Urine dipstick for protein [facility] Urine examination [facility] Urine microscopy: epithelial cells [facility] Urine microscopy: re d cells [facility] Urobilinogen [Presen ce] in Urine [facility] White blood cell count [facility] Payers Date Payer Category Payer Unknown [id number] 2025 Self-pay 2025 Unknown [id number] 2025 Unknown Unknown [id number] Unknown [id number] Unknown [id number] Unknown [id number] [id number] Social History Date Type Detail Facility Start: 01-07-2025 Tobacco smoking stat [facility] Never smoked tobacco (finding) [facility] Start: 01-08-2025 Sex Female (finding) [facility] Start: 1970 Sex Assigned At Female [facility] Radiology Diagnostic study note 01-07-2025 Note Date & Type Note Facility 01-07-2025 Radiology Diagnostic study note [facility] Imaging Services [address] [place], [place] [address] Abdomen/Pelvis W IV Cont ONLY MR#: [id number] Acct: [id number] Name: ARAVIND VERGARA Meryl Rep #: [id number] : 1970 F 54 From: Cyn Contreras MD PCP: Radha Blackman, TAX RECORD CLERK-C Status: RE G ER Study:Abdomen/Pelvis W IV Cont ONLY Date of E xam: 01/07/25 Exam# [id number] Ordering Dr: Hilary Talbert DO PROCEDURE: ABDOMEN/PELVIS [...] CC: DELFINO Blackman; James Talbert DO ~ Hand Trucker: Signed [facility] Discharge instructions 01-07-2025 Note Date & [...] further concerns please return for repeat evaluation. [facility] Work Phone: Evaluation note Note Date & Type Note Facility Evaluation note No assessment information availa ble [facility] Work Phone: Reason for referral (narrative) Note Date & Type Note Facility Reason for referral (narrative) No reason for referral information available [facility] Work Phone: Chief Complaint and Reason for [...] Do you have a Healthcare Power of Circle Cutting Saw Operator? No January 07, 2025 10:43pm Advance Directives No July 12, 2015 12:51pm Summary Purpose Additional Source Comments Care Teams (unrecognized sec tion and content) Team Status: Active Member Role Status Dates Radha Blackman NP, TAX RECORD CLERK-C Primary Care Provider Activ e Team Status: Inactive Member Role Status Dates Dr. James Talbert DO Emergency Provider Active Start: January 07, 2025 End: January 08, 2025 Radha Blackman NP, TAX RECORD CLERK-C Primary Care Provider Activ e Start: January 07, 2025 End: January 08, 2025 Team Status: Inactive Member Role Status Dates Dr. James Talbert DO Attending Provider Active Start: January 07, 2025 End: January 08, 2025 Dr. James Talbert DO Emergency Provider Active Start: January 07, 2025 End: January 08, 2025 Radha Blackamn NP, TAX RECORD CLERK-C Primary Care Provider Activ e Start: January 07, 2025 End: January 08, 2025 Team Status: Inactive Member Role Status Dates Radha Blackman NP, TAX RECORD CLERK-C Primary Care Provider Activ e Start: March [...] section and content) DATE CREATED AUTHOR 03/30/2025 [facility] FOR RECORDS PERTAINING TO PATIENTS WHO [...] BE BASED ON THE PRIMARY CLINICAL RECORDS. [facility] [employer] provides no warranty or guarantee of the accuracy or completeness of information in this document.
--- NOTE | 2025-03-31 17:26 | STRESSREP ---
Stress Test Report Pharmacologic myocardial perfusion stress test. 54-year-old lady with a history of dyspnea Resting EKG demonstrates sinus rhythm with a rate of 65 bpm. Resting blood pressure is 160/106 mmHg. 0.4 mg of regadenoson was infused per usual protocol followed by rapid intravenous saline flush injection. Continuous EKG monitoring was performed. The maximum heart rate was 96 bpm which was 57% of max impacted heart rate the maximum workload was 1 metabolic equivalent. At rest there were no ST or T wave changes noted to suggest ischemia and at peak infusion nonspecific ST changes were noted which did not meet the criteria for ischemia. No clinical angina is noted. The final blood pressure was 150/94 mmHg. Myocardial perfusion protocol. 14 point mCi of technetium 99m sestamibi was injected at rest. 0.4 mg of regadenoson was infused per usual protocol. At peak infusion 44.6 mCi of technetium 99m sestamibi was injected stress images were obtained stress and rest images were reconstructed and compared in the short axis vertical long and horizontal long axis. Gated images were also obtained. Perfusion SPECT analysis: Review of the stress images demonstrate normal uptake of tracer noted in all areas of the myocardium. The resting images similar demonstrated normal uptake of tracer noted in all areas of the myocardium. No areas of reversibility are noted to suggest ischemia and no previous infarct is noted. Gated SPECT analysis: The gated ejection fraction is 66%. Conclusion: Normal pharmacologic myocardial perfusion stress test. Preserved ejection fraction.
== END | disposition home or self-care (01) ==
PROVIDERS: PCP Nurse Practitioner Family; Referring Provider Nurse Practitioner Family; Visit Provider Nurse Practitioner Family
DX: R00.2 Palpitations (principal); R06.02 Shortness of breath; R53.83 Other fatigue; Z82.49 Family history of ischemic heart disease and other diseases of the circulatory system
CPT/HCPCS: 78452; 93017; 93306; A9500; A4216; J2785